=== PATIENT | female | born 1995 | race Caucasian/White ===

== ENCOUNTER 2021-07-23 08:45 | Emergency (ER) | payer OTHER ==
--- OUTSIDE RECORDS SUMMARY | 2021-07-23 08:48 | XMS REPORT | Continuity of Care Document ---
:1995 Author Organization [facility] t Address [address] [place] [address] Care Team Providers Name Role Phone Unavailable Unavailable Unavailable Problems This patient has no known problems. Allergies, Adverse Reactions, Alerts This patient has no known allergies or adverse reactions. Medications This patient has no known medications. Procedures This patient has no known procedures. Results This patient has no known results.
[2021-07-23 09:11] LABS: Urine Blood Trace-lysed (Negative); Urine Glucose Negative (Negative); Urine Protein Negative (Negative)
[2021-07-23] MEDS ORDERED: ACETAMINOPHEN 500 MG TAB ONE (09:23)
[2021-07-23 09:28] LABS: Absolute Lymphocytes (CBC) 1.3 K/uL (0.7-4.9); Basophils % 0.8 % (0-1.3); Hematocrit 39.9 % (36.0-45.0); Lymphocytes % 14.2 % (15.3-44.8); MPV 9.4 fL (7.6-11.3); RBC Red Blood Cell Count 4.61 M/uL (3.86-4.86)
[2021-07-23] MEDS ORDERED: NA CHLORIDE 0.9% 1,000 ML ONE (09:31)
[2021-07-23 10:01] LABS: BUN Blood Urea Nitrogen 7 mg/dL (7-18); Bicarbonate 23 mmol/L (21-32); Glucose Level 87 mg/dL (74-106); HCG, Quantitative 48900 mIU/mL (1-3); Potassium 3.7 mmol/L (3.5-5.1); Sodium Level 138 mmol/L (136-145)
--- NOTE | 2021-07-23 11:14 | RAD REPORT ---
EXAM DESCRIPTION: US - Transvaginal OB - 07/23/2021 10:59 am CLINICAL HISTORY: Abd pain;Vaginal bleeding COMPARISON: No comparisons FINDINGS: Single IUP with positive heart tones. The crown-rump length measures 1.1 cm which is consistent with 7 weeks 1 day. The heart rate is measured at 165 beats . minute. The right ovary measures 2.1 x 1.6 x 1.9 cm with volume of 3.4 cc. The left ovary measures 4.1 x 3.5 x 3.6 cm with volume of 26.9 cc. A simple appearing left ovarian cyst is noted. IMPRESSION: Single viable IUP with positive heart tones measuring 7 week 1 day with estimated delivery of 03/10/2022.
--- NOTE | 2021-07-23 12:31 | ER ---
Nurse's Notes [facility] Name: Celia Thakkar Age: 25 yrs Sex: Female : 1995 Arrival Date: 07/23/2021 Time: 08:50 Bed 7 Private MD: Diagnosis: Threatened Presentation: 07/23 08:56 Chief complaint: Patient states: Sharp, suprapubic discomfort, dark brown vaginal ss spotting and pain to back of head that began at 0300 this am. Pt reports that she is 8 weeks . Coronavirus screen: Client denies travel out of the [place] in the last 14 days. Ebola Screen: Patient denies exposure to infectious person. Patient denies travel to an Ebola-affected area in the 21 days before illness onset. Initial Sepsis Screen: Does the patient meet any 2 criteria? No. Patient's initial sepsis screen is negative. Does the patient have a suspected source of infection? No. Patient's initial sepsis screen is negative. Risk Assessment: Do you want to hurt yourself or someone else? Patient reports no desire to harm self or others. Onset of symptoms was July 23, 2021. 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 - Social history:: Smoking status: Patient denies any tobacco usage or history of. Screenin:20 Abuse screen: Denies threats or abuse. Nutritional screening: No deficits noted. ll1 Tuberculosis screening: No symptoms or risk factors identified. Fall Risk IV access (20 points). Total Farias Fall Scale indicates No Risk (0-24 pts). Assessment: 09:20 General: Appears in no apparent distress. Behavior is calm, cooperative, appropriate ll1 for age. Pain: Denies pain. GI: Bowel sounds present X 4 quads. Abd is soft and non tender X 4 quads. : Reports cramping, vaginal bleeding that is brown, light flow, spotty. Vital Signs: 08:56 BP 120 / 82; Pulse 95; Resp 14; Pulse Ox 100% on R/A; Weight 88.45 kg; Height 5 ft. 5 ss in. (165.10 cm); Pain 7/10; 09:00 Temp 98.2(TE); ss 09:30 BP 112 / 67 Supine; Pulse 86; ll1 09:32 BP 115 / 65; Pulse 89; ll1 09:34 ll1 12:45 BP 119 / 70; Pulse 82; Resp 15; Pulse Ox 100% ; ll1 08:56 Body Mass Index 32.45 (88.45 kg, 165.10 cm) ss 09:34 got too dizzy to complete standing ortho. Danika Osuna NP informed. ll1 ED Course: 08:50 Patient arrived in ED. mr 08:57 Triage completed. ss 08:57 [facility] kb 08:57 Onur Saucedo MD is Attending Physician. kb 08:57 Arm band placed on left wrist. ss 09:03 Shila Joshi, RADHA is Primary Nurse. ll1 09:12 Patient has correct armband on for positive identification. Placed in gown. Bed in low mh5 position. Call light in reach. Warm blanket given. Pulse ox on. NIBP on. 09:12 Urine collected: clean catch specimen, clear. mh5 09:20 Inserted saline lock: 20 gauge in right antecubital area, using aseptic technique. ll1 Blood collected. 10:59 US Transvaginal Ob In Process Unspecified. EDMS 12:45 IV discontinued, intact, bleeding controlled, No redness/swelling at site. Pressure ll1 dressing applied. 12:45 No provider procedures requiring assistance completed. ll1 Administered Medications: 09:27 Drug: Tylenol 1000 mg Route: PO; ll1 13:07 Follow up: Response: No adverse reaction ll1 09:35 Drug: NS 0.9% 1000 ml Route: IV; Rate: 1000 ml; Site: right antecubital; ll1 12:45 Follow up: Response: No adverse reaction; IV Status: Completed infusion; IV Intake: ll1 1000ml Intake: 12:45 IV: 1000ml; Total: 1000ml. ll1 Outcome: 12:31 Discharge ordered by . kb 12:45 Discharged to home ambulatory. ll1 12:45 Condition: stable 12:45 Discharge instructions given to patient, Instructed on discharge instructions, follow up and referral plans. Demonstrated understanding of instructions, follow-up care. 12:46 Patient left the ED. 5 Signatures: Dispatcher [employer] EDMS Isabel Osuna, MARISSA MTZP-Frieda [place], Chela Borjas RN [facility] Shila Joshi RN RN 1
--- NOTE | 2021-07-23 12:31 | EDPHYS ---
Physician Documentation [facility] Name: Celia Thakkar Age: 25 yrs Sex: Female : 1995 Arrival Date: 07/23/2021 Time: 08:50 Bed 7 Private MD: ED Physician Onur Saucedo HPI: 07/23 12:47 This 25 yrs old Female presents to ER via Ambulatory with complaints of Headache, 8wks kb , Abdominal Pain. 12:47 The patient presents to the emergency department with abdominal pain, vaginal bleeding, kb described as spotting. The estimated gestational age is 8 weeks. course: care: private OB physician, [facility], Leakage of Fluid: none appreciated, Ultrasound: the patient has not had an ultrasound, Risk/complications: no obvious risks or complications are appreciated. Previous pregnancies: the patient has never been . Associated signs and symptoms: Pertinent positives: abdominal pain, vaginal bleeding. The patient has not experienced similar symptoms in the past. The patient has not recently seen a physician. Pt reports she noticed brown blood on tissue when she wiped about 4 times, has had lower abd pain, headache and dizziness that started at 0300 this morning. . 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 - Social history:: Smoking status: Patient denies any tobacco usage or history of. ROS: 12:46 Constitutional: Negative for fever, chills, and weight loss. kb 12:46 Abdomen/GI: Positive for abdominal pain, Negative for nausea, vomiting, and diarrhea. 12:46 : Positive for vaginal bleeding. 12:46 Neuro: Positive for dizziness, headache. 12:46 All other systems are negative. Exam: 12:47 Constitutional: This is a well developed, well nourished patient who is awake, alert, kb and in no acute distress. Head/Face: Normocephalic, atraumatic. ENT: Moist Mucous membranes Cardiovascular: Regular rate and rhythm with a normal S1 and S2. No gallops, murmurs, or rubs. No pulse deficits. Respiratory: Respirations even and unlabored. No increased work of breathing, no retractions or nasal flaring. Abdomen/GI: Soft, non-tender. No distention Skin: Warm, dry with normal turgor. Normal color. MS/ Extremity: Pulses equal, no cyanosis. Neurovascular intact. Full, normal range of motion. Neuro: Awake and alert, GCS 15, oriented to person, place, time, and situation. Moves all extremities. Normal gait. Psych: Awake, alert, with orientation to person, place and time. Behavior, mood, and affect are within normal limits. Vital Signs: 08:56 BP 120 / 82; Pulse 95; Resp 14; Pulse Ox 100% on R/A; Weight 88.45 kg; Height 5 ft. 5 ss in. (165.10 cm); Pain 7/10; 09:00 Temp 98.2(TE); ss 09:30 BP 112 / 67 Supine; Pulse 86; ll1 09:32 BP 115 / 65; Pulse 89; ll1 09:34 ll1 12:45 BP 119 / 70; Pulse 82; Resp 15; Pulse Ox 100% ; ll1 08:56 Body Mass Index 32.45 (88.45 kg, 165.10 cm) ss 09:34 got too dizzy to complete standing ortho. Danika Osuna, CURB MACHINE OPERATOR informed. ll1 MDM: 08:57 Patient medically screened. kb 10:37 Data reviewed: vital signs, nurses notes. Data interpreted: Pulse oximetry: on room air kb is 100 %. Interpretation: normal. 12:46 Counseling: I had a detailed discussion with the patient and/or guardian regarding: the kb historical points, exam findings, and any diagnostic results supporting the discharge/admit diagnosis, lab results, radiology results, the need for outpatient follow up, an OB/Gyne specialist, to return to the emergency department if symptoms worsen or persist or if there are any questions or concerns that arise at home. 07/23 09:00 Order name: Abo/rh Typing; Complete Time: 10:26 kb 07/23 09:00 Order name: Basic Metabolic Panel; Complete Time: 10:06 kb 07/23 09:00 Order name: CBC with Diff; Complete Time: 09:39 kb 07/23 09:00 Order name: Quantitative Hcg; Complete Time: 10:06 kb 07/23 09:11 Order name: Urine Dipstick-Ancillary; Complete Time: 09:15 EDMS 07/23 09:20 Order name: Urine --Ancillary (enter results); Complete Time: 10:35 em1 07/23 09:00 Order name: IV Saline Lock; Complete Time: 09:03 kb 07/23 09:00 Order name: Labs collected and sent; Complete Time: 09:03 kb 07/23 09:00 Order name: NPO; Complete Time: 09:03 kb 07/23 09:00 Order name: Urine Dipstick-Ancillary (obtain specimen); Complete Time: 09:11 kb 07/23 10:07 Order name: US Transvaginal Ob; Complete Time: 12:12 kb 07/23 10:30 Order name: ABO/RH no charge; Complete Time: 10:35 EDMS 07/23 09:00 Order name: Urine Test (obtain specimen); Complete Time: 09:11 kb 07/23 09:22 Order name: Orthostatics; Complete Time: 09:27 kb Administered Medications: 09:27 Drug: Tylenol 1000 mg Route: PO; ll1 13:07 Follow up: Response: No adverse reaction ll1 09:35 Drug: NS 0.9% 1000 ml Route: IV; Rate: 1000 ml; Site: right antecubital; ll1 12:45 Follow up: Response: No adverse reaction; IV Status: Completed infusion; IV Intake: ll1 1000ml Disposition: 17:56 Co-signature as Attending Physician, Onur Saucedo MD I agree with the assessment and kdr plan of care. Disposition Summary: 07/23/21 12:31 Discharge Ordered Location: Home kb Condition: Stable kb Diagnosis - Threatened kb Followup: kb - With: Emergency Department - When: As needed - Reason: Worsening of condition Followup: kb - With: Private Physician - When: 2 - 3 days - Reason: Recheck today's complaints, Continuance of care, Re-evaluation by your physician Discharge Instructions: - Discharge Summary Sheet kb - Threatened Miscarriage, [id number] kb - Vaginal Bleeding During , First Trimester, [id number] kb Forms: - Medication Reconciliation Form kb - Thank You Letter kb - Antibiotic Education kb - Prescription Opioid Use kb - Work release form ll1 Signatures: Dispatcher [facility] Isabel Noe, FITTER AND TURNER-C FITTER [employer] TURNER-Onur Alvarez MD MD kdr Smirch, [place], RN RN Shila Joshi RN RN 1
[2021-07-23 13:16] VITALS: TEMP 98.2
[2021-07-23 13:18] VITALS: BP 115/65
== END 2021-07-23 12:46 | disposition home or self-care (01) ==
LOC: ER 08:45
DX: O20.0 Threatened abortion (principal)
CPT/HCPCS: 96361; 85025; 80048; 36415; 86900; 81025; 86901; 84702; 81003; 76817; 96360; 99284; J7030

== ENCOUNTER 2021-09-07 06:14 | Emergency (ER) | payer OTHER ==
--- OUTSIDE RECORDS SUMMARY | 2021-09-07 06:17 | XMS REPORT | Continuity of Care Document ---
:1995 Author Organization [facility] t Address [address] [place] [address] Care Team Providers Name Role Phone Mykel MEYER Primary Care Physician Jennifer GRIFFITH, S Attending Clinician Jose RODRIGUEZ Attending Clinician Unavailable Payers Payer Name Policy Type Policy Number Effective Date Expiration Date S ource Problems Condition Condition Condition Status Onset Resolution Last Treating Co mments Source Name Details Category Date Date Treatment Clinician Date Left Left Disease Active Univers radial radial 4-10 ity of head head 00:00: [place] fracture, fracture, 00 Medi cristina closed, closed, Branch initial initial encounter encounter Allergies, Adverse Reactions, Alerts Allergy Allergy Status Severity Reaction(s) Onset Inactive Treating Comm ents Source Name Type Date Date Clinician NO KNOWN Drug Active Univers ALLERGIE Class ity of S [place] [facility] Social History Social Habit Start Date Stop Date Quantity Comments Source Exposure to Not sure [facility] SARS-CoV-2 (event) Medica l Branch Alcohol intake 2021-07-25 2021-07-25 [facility] 00:00:00 00:00:00 Medical Branch Sex Assigned At [birth year] [facility] 00:00:00 00:00:00 Medical Branch Smoking Status Start Date Stop Date Source Never smoker [facility] [place] [facility] Medications Ordered Filled Start Stop Current Ordering Indication Dosage Frequency Signature Comments Components Source Medication Medication Date Date Medication? Clinician (SIG) Name Name ondansetron 2020-09 No 4mg 4 mg, Univ ers (ZOFRAN-ODT 09-24 Oral, ity of ) 09:45: 08:40 ONCE, 1 [place] disintegrat 00 :00 dose, On Medi cristina ing tablet [place] [facility] 4 mg 07/25/21 at 0345, Routine acetaminoph 2020-09 No 1000mg 1,000 mg, Univers en 09-24 Oral, ity of (TYLENOL) 09:30: 08:39 ONCE, [place] tablet [place] :00 dose, On Medical 1,000 mg [place] [facility] 07/25/21 at 0330, Routine proCHLORper 2020-09 No 10mg Take 10 mg Univers azine 09-24 by mouth ity of (COMPAZINE) 00:46: 00:00 [place] 6 [place] 10 mg 38 :00 (six) Medical tablet hours as Branch needed. ketorolac 2020-09 No 10mg Take 10 mg U papoers (TORADOL) 09-24 by mouth. ity of 10 mg 00:46: 00:00 [place] tablet 32 :00 Medical Branch MEDROXYPROG 2020-09 No by Unive rs ESTERONE 09-24 Intramuscu ity of ACETATE 00:46: 00:00 lar route. [place] as (DEPO-PROVE 29 :00 Medical RA IM) Branch dexamethaso 2020-09 No 4mg Take 4 mg Univers ne 09-24 by mouth ity of (DECADRON) 00:46: 00:00 [place] 12 [place] 4 [place] tablet 26 :00 (twelve) Medi cristina hours. Branch ASPIRIN/KAITLYN 2020-09 No Take by U karen TAMINOPHEN/ 09-24 mouth. ity o f CAFFEINE 00:46: 00:00 [place] (EXCEDRIN 17 :00 Medical MIGRAINE Branch ORAL) naproxen 2016-09 No 500mg Take 1 Unive rs 500 mg 004 07-25 tablet by ity of tablet 00:00: 00:00 mouth 2 [place] 00 :00 (two) Medical times [place] daily with meals. cyclobenzap 2016-09- No 5mg Take 1 Uni vers rine 5 mg 07-25 tablet by ity of tablet 00:00: 00:00 mouth 3 [place] 00 :00 (three) Medical times Branch daily. clindamycin 2020- No [id number] Apply to Univers (CLEOCIN T) 04-22 area(s) ity of 1 % gel 00:00: 00:00 every [place] 00 :00 morning. Medical Branch tretinoin 2020- No [id number] Apply 2 Univers (RETIN-A) 04-22 times ity of 0.025 % 00:00: 00:00 [place] cream 00 :00 x 3-4 Medical weeks, Branch then q other HS x 3-4 weeks, then qHS Immunizations Ordered Immunization Filled Immunization Date Status Commen ts Source Name Name HPV 2011-04-12 Completed University of 00:00:00 [facility] HPV 2010-10-22 Completed University of 00:00:00 [facility] Meningococcal 2010-06-25 Completed University of Vaccine 00:00:00 [facility] TDAP 2010-06-25 Completed University of 00:00:00 [facility] Varicella 2010-06-25 Completed University of (varivax)(chicken 00:00:00 [place] M edical pox) Branch HEPATITIS A 2004-04-08 Completed University of 00:00:00 [facility] DTAP 2001-12-25 Completed University of 00:00:00 [facility] HEPATITIS A 2001-12-25 Completed University of 00:00:00 [facility] MMR 2001-12-25 Completed University of 00:00:00 [facility] Polio (IPV/OPV) 2001-12-25 Completed Universit y of 00:00:00 [facility] HEPATITIS A 2001-02-01 Completed University of 00:00:00 [facility] Hep B, Adol or Pedi 2001-02-01 Completed Unive rsity of Dosage 00:00:00 [facility] Varicella 2001-02-01 Completed University of (varivax)(chicken 00:00:00 [place] M edical pox) Branch Pneumococcal 7 2001-02-01 Completed University of Conjugate, PCV7 00:00:00 [place] Med ical (Prevnar7) Branch MMR 1999-01-12 Completed University of 00:00:00 [facility] Polio (IPV/OPV) 1999-01-12 Completed Universit y of 00:00:00 [facility] DTAP 1999-01-12 Completed University of 00:00:00 [facility] HIB 3 Dose Schedule 1999-01-12 Completed Unive rsity of 00:00:00 [facility] HIB 3 Dose Schedule 1998-01-12 Completed Unive rsity of 00:00:00 [facility] DTAP 1995 Completed University of 00:00:00 [facility] HIB 3 Dose Schedule 1995 Completed Unive rsity of 00:00:00 [facility] Polio (IPV/OPV) 1995 Completed Universit y of 00:00:00 [facility] DTAP 1995 Completed University of 00:00:00 [facility] HIB 3 Dose Schedule 1995 Completed Unive rsity of 00:00:00 [facility] Hep B, Adol or Pedi 1995 Completed Unive rsity of Dosage 00:00:00 [facility] Polio (IPV/OPV) 1995 Completed Universit y of 00:00:00 [facility] Hep B, Adol or Pedi 1995 Completed Unive rsity of Dosage 00:00:00 [facility] Vital Signs Vital Name Observation Time Observation Value Comments Source Systolic blood 2021-07-25 09:00:00 125 mm[Hg] Univer sity of pressure [facility] Diastolic blood 2021-07-25 09:00:00 75 mm[Hg] Unive rsity of pressure [facility] Heart rate 2021-07-25 09:00:00 81 /min [facility] Oxygen saturation in 2021-07-25 09:00:00 100 /min [facility] Arterial blood by [facility] Pulse oximetry Branch Respiratory rate 2021-07-25 08:00:00 16 /min [facility] Body temperature 2021-07-25 06:44:00 37.06 Cassie [facility] Body height 2021-07-25 06:44:00 165.1 cm [facility] Body weight 2021-07-25 06:44:00 88.451 kg [facility] BMI 2021-07-25 06:44:00 32.45 kg/m2 [facility] Procedures Procedure Date / Time Performing Clinician Source Performed ABORH CONFIRMATION (LAB 2021-07-25 07:45:00 Nirav Rodriguez [facility] ONLY) [facility] HB ABO GROUPING 2021-07-25 07:22:00 Nirav Rodriguez [facility] COMP. METABOLIC PANEL 2021-07-25 07:20:00 Nirav Rodriguez [facility] ([id number]) [facility] TOTAL BETA HCG ASSAY 2021-07-25 07:20:00 Nirav Rodriguze [facility] CBC WITH DIFF 2021-07-25 07:20:00 Nirav Rodriguez [facility] URINALYSIS 2021-07-25 07:20:00 Nirav Rodriguez [facility] NOTICE OF PRIVACY 2021-07-25 06:34:06 Doctor Unassigned, No [facility] PRACTICES Name [facility] CONSENT/REFUSAL FOR 2021-07-25 06:33:55 Doctor Unassigned, No [facility] DIAGNOSIS AND TREATMENT Name [facility] Encounters Start End Encounter Admission Attending Care Care Encounter Source Date/Time Date/Time Type Type Clinicians Facility Department ID 2021-07-25 2021-07-25 Emergency Jennifer [facility] [id number] Univers 00:39:00 03:30:00 Nirav Garcia [place] [id number] i [facility] [id number] [facility] [id number] [facility] 084 Branch 2021-07-25 2021-07-25 Emergency X JENNIFER [facility] ERT [id number] Univers 00:39:00 [facility]30[facility] Test Description Test Time Test Comments Results Result Comments Source ABORH Confirmation (Lab Only) 2021-07-25 08:58:17 Test Item Value Reference Range Interpretation Comme nts ABO & RH (test code = 20) B Positive Pe rformed at [facility] Laboratory Services - [facility] Blood [address] [id number] Free: [phone] A No. [id number] [facility] Screen - ONCE [id number] 08:44:15 Test Item Value Reference Range Interpretation Comments ABO & RH (test code B Positive Performe d at [facility] = 20) Laboratory Serv [facility] Blood Bank[address] [place] [address] Free: [phone] A No. [id number] IAT (test code = Negative Performed a t [facility] 1185) Laboratory [facility] Blood [address] [place], [place] [id number] Free: [phone] A No. [id number] [facility] (QUANTITATIVE)2021-07-25 08:38:23 Test Item Value Reference Range Interpretation Comments BETA HCG (test See_Comment [Automated m essage] code = The system [employer] h [id number]) generated this result transmit grecia reference range : Non- fe male and male patien ts: <5 mIU/mL. The reference range was not used to interpret this result as normal/abnormal . DEIDRA (test code Gestational Age ? ? = DEIDRA) ?Range (mIU/mL) 1-10 ?Weeks ?[id number] Weeks ?[id number] Weeks ?1595-71010740-50 Weeks ?8261-279747 Biotin has been reported to cause a negative bias, interpret results relative to patient's use of biotin. [facility]. METABOLIC PANEL ([id number])2021-07-25 07:44:50 Test Item Value Reference Range Interpretation Comments NA (test code = 136 mmol/L 135-145 2640614658) K (test code = 3.9 mmol/L 3.5-5.0 3481713338) CL (test code = 104 mmol/L 98-108 8929965090) CO2 TOTAL (test code = 24 mmol/L 23-31 4600227939) AGAP (test code = 2-16 4659063105) BUN (test code = 7 mg/dL 7-23 7948781618) GLUCOSE (test code = 115 mg/dL 70-110 H 9743466447) CREATININE (test code = 0.58 mg/dL 0.50-1.04 3178960612) TOTAL BILI (test code = 0.3 mg/dL 0.1-1.0 1755054538) CALCIUM (test code = 9.6 mg/dL 8.6-10.6 2627301830) T PROTEIN (test code = 6.9 g/dL 6.3-8.2 5419999259) ALBUMIN (test code = 4.1 g/dL 3.5-5.0 8053899465) ALK PHOS (test code = 75 U/L 34-122 2705767081) ALTv (test code = 13 U/L 5-35 1742-6) AST(SGOT) (test code = 19 U/L 13-40 9419298844) eGFR (test code = mL/min/1.73m2 6357572208) DEIDRA (test code = DEIDRA) Association of Glomerular Filtration Rate (GFR) and Staging of Kidney Disease* + --+ --+ ------+| GFR (mL/min/1.73 m2) ?| With Kidney Damage ?| ?Without Kidney Damage+ --------+ --------+ +| ?>90 ?| ?Stage one ?| ? Normal ?+ ---+ ---+ -------+| ?60-89 ?| ?Stage two ?| ? Decreased GFR ? + --+ --+ ------+| ?30-59 ?| ?Stage three ?| ? Stage three ? + --+ --+ ------+| ?15-29 ?| ?Stage four ? | ? Stage four ?+ ---+ ---+ -------+| ?<15 (or dialysis) ? ?| ?Stage five ? | ? Stage five ?+ ---+ ---+ -------+ *Each stage assumes the associated GFR level has been in effect for at least three months. ?Stages 1 to 5, with or without kidney disease, indicate chronic kidney disease. Notes: Determination of stages one and two (with eGFR >59mL/min/1.73 m2) requires estimation of kidney damage for at least three months as defined by structural or functional abnormalities of the kidney, manifested by either:Pathological abnormalities or Markers of kidney damage (including abnormalities in the composition of the blood or urine or abnormalities in imaging tests). Lab Interpretation Abnormal (test code = 50027-4) [facility] WITH [id number] 07:31:47 Test Item Value Reference Range Interpretation Comments WBC (test code = See_Comment [Automated 5490-2) message] The sy stem which generated this result transmitted reference range : 4.30 - 11.10 10*3/?L. The reference range was not used to interpret this result as normal/abnormal . RBC (test code = See_Comment [Automated 789-8) message] The sy stem which generated this result transmitted reference range : 3.93 - 5.25 10*6/?L. The reference range was not used to interpret this result as normal/abnormal . HGB (test code = 12.6 g/dL 11.6-15.0 718-7) HCT (test code = 37.8 % 35.7-45.2 4544-3) MCV (test code = 88.3 fL 80.6-95.5 787-2) MCH (test code = 29.4 pg 25.9-32.8 785-6) MCHC (test code = 33.3 g/dL 31.6-35.1 786-4) RDW-SD (test code = 41.1 fL 39.0-49.9 56935-6) RDW-CV (test code = 12.8 % 12.0-15.5 788-0) PLT (test code = See_Comment [Automated 777-3) message] The sy stem which generated this result transmitted reference range : 166 - 358 10*3/ ?L. The reference r nurys was not used to interpret this result as normal/abnormal . MPV (test code = 11.2 fL 9.5-12.9 69321-0) NRBC/100 WBC (test See_Comment [Automat ed code = [id number]) message] The system which generated this result transmitted reference range : 0.0 - 10.0 /100 WBCs. The refer ence range was not u sed to interpret th is result as normal/abnormal . NRBC x10^3 (test code <0.01 See_Comment [Auto mated = 5627267116) message] The s ystem which generated this result transmitted reference range : 10*3/?L. The reference range was not used to interpret this result as normal/abnormal . GRAN MAT (NEUT) % 76.4 % (test code = 770-8) IMM GRAN % (test code 0.40 % = 3549927722) LYMPH % (test code = 13.3 % 736-9) MONO % (test code = 7.9 % 5905-5) EOS % (test code = 1.4 % 713-8) BASO % (test code = 0.6 % 706-2) GRAN MAT x10^3(ANC) 7.57 10*3/uL 1.88-7.09 H (test code = 3664252484) IMM GRAN x10^3 (test 0.04 10*3/uL 0.00-0.06 code = 3061414880) LYMPH x10^3 (test code 1.32 10*3/uL 1.32-3.29 = 731-0) MONO x10^3 (test code 0.78 10*3/uL 0.33-0.92 = 742-7) EOS x10^3 (test code = 0.14 10*3/uL 0.03-0.39 711-2) BASO x10^3 (test code 0.06 10*3/uL 0.01-0.07 = 704-7) Lab Interpretation Abnormal (test code = 33653-6) [facility]"
[2021-09-07] MEDS ORDERED: CODEINE 30MG/APAP 300MG TAB ONE (07:45)
--- NOTE | 2021-09-07 08:37 | RAD REPORT ---
EXAM DESCRIPTION: CT - Head Brain Wo Cont - 09/07/2021 8:19 am CLINICAL HISTORY: Headache COMPARISON: None. TECHNIQUE: Computed axial tomography of the head was obtained. IV contrast was not requested. Patien t's abdomen was shielded All CT scans are performed using dose optimization technique as appropriate and may include automated exposure control or mA/KV adjustment according to patient size. FINDINGS: An intracranial bleed is not seen . The ventricles are normal in caliber. No extra-axial fluid collection is noted. Fluid within the sinuses/ mastoids is not seen. IMPRESSION: No acute intracranial abnormality is seen. If patient's symptoms persist MRI of the bra in would be recommended.
--- NOTE | 2021-09-07 08:45 | EDPHYS ---
Physician Documentation [facility] Name: Celia Thakkar Age: 26 yrs Sex: Female : 1995 Arrival Date: 09/07/2021 Time: 06:29 Bed 9 Private MD: ED Physician Chris Haynes HPI: 09/07 07:39 This 26 yrs old Female presents to ER via Ambulatory with complaints of Headache. rn 07:39 The patient complains of pain to the right eye and left eye. The patient describes the rn headache as aching. Onset: The symptoms/episode began/occurred yesterday. Associated signs and symptoms: Pertinent positives: blurred vision, visual field changes, Pertinent negatives: altered mental status, fever, neck stiffness, rash, weakness, vertigo. Severity of symptoms: At its worst the pain was moderate, in the emergency department the pain has improved. Headache History: The patient has had previous headaches and this one is similar to previous episodes. The symptoms are alleviated by nothing. the symptoms are aggravated by lights, noise. The patient has experienced a previous episode. The patient has not recently seen a physician. Patient reports 2 days of headache, began behind the right eye yesterday with visual disturbances, so ribbon in right eye with blurred/decreased vision in that eye yesterday. Has had headache before but this was slightly different. Went home and took Tylenol with improvement of headache as well as visual disturbance. Currently still having headache but visual disturbance has resolved since last night. Denies any focal neurological problem such as weakness or numbness. No speech difficulty. No recent head injury. No neck injury. No other medical problems.. 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 - Social history:: Smoking status: Patient denies any tobacco usage or history of. - Family history:: not pertinent. - Hospitalizations: : No recent hospitalization is reported. ROS: 07:39 Constitutional: Negative for fever, chills, and weight loss, Eyes: Negative for injury, rn redness, and discharge, ENT: Negative for injury, pain, and discharge, Neck: Negative for injury, pain, and swelling, Cardiovascular: Negative for chest pain, palpitations, and edema, Respiratory: Negative for shortness of breath, cough, wheezing, and pleuritic chest pain, Abdomen/GI: Negative for abdominal pain, diarrhea, and constipation, Back: Negative for injury and pain, : Negative for injury, bleeding, discharge, and swelling, MS/Extremity: Negative for injury and deformity, Skin: Negative for injury, rash, and discoloration, Neuro: Negative for weakness, numbness, tingling, and seizure. 07:39 All other systems are negative. rn Exam: 07:39 Constitutional: This is a well developed, well nourished patient who is awake, alert, rn and in no acute distress. Head/Face: Normocephalic, atraumatic. Eyes: Pupils equal round and reactive to light, extra-ocular motions intact. Lids and lashes normal. Conjunctiva and sclera are non-icteric and not injected. Cornea within normal limits. Periorbital areas with no swelling, redness, or edema. Neck: Trachea midline, no masses palpated, and no cervical lymphadenopathy. Supple, full range of motion without nuchal rigidity, or vertebral point tenderness. No Meningismus. Cardiovascular: Regular rate and rhythm. No pulse deficits. Respiratory: No increased work of breathing, no retractions or nasal flaring. Skin: Warm, dry, no rash MS/ Extremity: Pulses equal, no cyanosis. Neurovascular intact. Full, normal range of motion. Equal circumference. Neuro: Awake and alert, GCS 15, oriented to person, place, time, and situation. Cranial nerves II-XII grossly intact. Motor strength 5/5 in all extremities. Sensory grossly intact. Cerebellar exam normal. Vital Signs: 06:43 BP 128 / 75; Pulse 85; Resp 18 S; Temp 98.5(TE); Pulse Ox 100% ; Weight 88.45 kg (R); as6 Height 5 ft. 5 in. (165.10 cm) (R); Pain 7/10; 06:43 Body Mass Index 32.45 (88.45 kg, 165.10 cm) as6 [place] Coma Score: 08:40 Eye Response: spontaneous(4). Verbal Response: oriented(5). Motor Response: obeys rn commands(6). Total: 15. MDM: 07:19 Patient medically screened. rn 08:40 Differential diagnosis: migraine, tension headache, vasomotor headache, ocular rn migraine. Data reviewed: vital signs, nurses notes, radiologic studies, CT scan, and as a result, I will discharge patient. Counseling: I had a detailed discussion with the patient and/or guardian regarding: the historical points, exam findings, and any diagnostic results supporting the discharge/admit diagnosis, radiology results, the need for outpatient follow up, to return to the emergency department if symptoms worsen or persist or if there are any questions or concerns that arise at home. 08:41 Response to treatment: the patient's symptoms have mildly improved after treatment, and rn as a result, I will discharge patient. Special discussion: I discussed with the patient/guardian in detail that at this point there is no indication for admission to the hospital. It is understood, however, that if the symptoms persist or worsen the patient needs to return immediately for re-evaluation. ED course: CT head without acute findings. No focal findings on neurological exam. Stable vital signs. Most likely ocular migraine given vision changes. Vision disturbances have resolved leaving just headache which responded to Tylenol at home and Tylenol with codeine here. Will DC home with return precautions and OB follow-up as needed. Has no related complaints today.. 09/07 07:08 Order name: CT Head Brain wo Cont; Complete Time: 08:40 kb Administered Medications: 07:49 Drug: Tylenol-Codeine #3 (300 mg - 30 mg) 2 tabs Route: PO; ll1 08:58 Follow up: Response: No adverse reaction; RASS: Alert and Calm (0) jd3 Disposition Summary: 09/07/21 08:44 Discharge Ordered Location: Home rn Problem: new rn Symptoms: have improved rn Condition: Stable rn Diagnosis - Headache rn - Ophthalmoplegic migraine, not intractable rn Followup: rn - With: Private Physician - When: As needed - Reason: Recheck today's complaints, Re-evaluation by your physician Discharge Instructions: - Discharge Summary Sheet jd3 Forms: - Medication Reconciliation Form rn - Thank You Letter rn - Antibiotic workers compensation attorney - Prescription Opioid Use rn - Work release form jd3 Signatures: Dispatcher [employer] EDChris Bal MD MD rn Lewis, Lynsay, RN RN francis Lamine Rae, RN RN as6 Susana, Bill RN jd3
--- NOTE | 2021-09-07 08:45 | ER ---
Nurse's Notes [facility] Name: Celia Thakkar Age: 26 yrs Sex: Female : 1995 Arrival Date: 09/07/2021 Time: 06:29 Bed 9 Private MD: Diagnosis: Headache;Ophthalmoplegic migraine, not intractable Presentation: 09/07 06:43 Chief complaint: Patient states: headache that started yesterday, nausea. Coronavirus as6 screen: At this time, the client does not indicate any symptoms associated with coronavirus-19. Ebola Screen: No symptoms or risks identified at this time. Initial Sepsis Screen: Does the patient meet any 2 criteria? No. Patient's initial sepsis screen is negative. Does the patient have a suspected source of infection? No. Patient's initial sepsis screen is negative. Risk Assessment: Do you want to hurt yourself or someone else? Patient reports no desire to harm self or others. Onset of symptoms was September 06, 2021. 06:43 Method Of Arrival: Ambulatory as6 06:43 Acuity: ASCENCION 3 as6 Triage Assessment: 07:20 Headache History:. General: Appears in no apparent distress. Behavior is calm, ll1 cooperative, appropriate for age. Neuro: Reports headache. 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 - Social history:: Smoking status: Patient denies any tobacco usage or history of. - Family history:: not pertinent. - Hospitalizations: : No recent hospitalization is reported. Screenin:20 Abuse screen: Denies threats or abuse. Nutritional screening: No deficits noted. ll1 Tuberculosis screening: No symptoms or risk factors identified. 09:02 Fall Risk None identified. jd3 Assessment: 09:02 General: Appears in no apparent distress. comfortable, Behavior is calm, cooperative, jd3 appropriate for age. Pain: Complains of pain in head Quality of pain is described as pressure. Neuro: Level of Consciousness is awake, alert, obeys commands, Oriented to person, place, time, situation, Speech is normal, Pupils are PERRLA. Cardiovascular: Capillary refill < 3 seconds Patient's skin is warm and dry. Respiratory: Airway is patent Respiratory effort is even, unlabored, Respiratory pattern is regular, symmetrical. GI: No signs and/or symptoms were reported involving the gastrointestinal system. : No signs and/or symptoms were reported regarding the genitourinary system. EENT: No signs and/or symptoms were reported regarding the EENT system. Derm: No signs and/or symptoms reported regarding the dermatologic system. Musculoskeletal: No signs and/or symptoms reported regarding the musculoskeletal system. Vital Signs: 06:43 BP 128 / 75; Pulse 85; Resp 18 S; Temp 98.5(TE); Pulse Ox 100% ; Weight 88.45 kg (R); as6 Height 5 ft. 5 in. (165.10 cm) (R); Pain 7/10; 06:43 Body Mass Index 32.45 (88.45 kg, 165.10 cm) as6 Alina Coma Score: 08:40 Eye Response: spontaneous(4). Verbal Response: oriented(5). Motor Response: obeys rn commands(6). Total: 15. ED Course: 06:29 Patient arrived in ED. ag3 06:45 Triage completed. as6 06:46 Arm band placed on. as6 07:18 Chris Haynes MD is Attending Physician. rn 07:20 Shila Joshi, RADHA is Primary Nurse. ll1 07:20 Arm band placed on Patient placed in an exam room, on a stretcher. ll1 07:20 Patient has correct armband on for positive identification. Bed in low position. Call ll1 light in reach. Side rails up X 1. Cardiac monitoring not applicable on this patient. 08:20 CT Head Brain wo Cont In Process Unspecified. EDMS 09:01 No provider procedures requiring assistance completed. Patient did not have IV access jd3 during this emergency room visit. Administered Medications: 07:49 Drug: Tylenol-Codeine #3 (300 mg - 30 mg) 2 tabs Route: PO; ll1 08:58 Follow up: Response: No adverse reaction; RASS: Alert and Calm (0) jd3 Outcome: 08:44 Discharge ordered by . rn 09:01 Discharged to home ambulatory, with family. jd3 09:01 Condition: stable 09:01 Discharge instructions given to patient, family, Instructed on discharge instructions, follow up and referral plans. Demonstrated understanding of instructions, follow-up care. 09:03 Patient left the ED. jd3 Signatures: Dispatcher [employer] EDMS Chris Haynes MD MD rn Bill Meza RN RN jd3 Ernestina Mendez Lynsay RN RN ll1 Lamine Rae RN RN as6
[2021-09-07 09:17] VITALS: BP 128/75; TEMP 98.5; O2SAT 100
== END 2021-09-07 09:03 | disposition home or self-care (01) ==
LOC: ER 06:14
DX: G43.B0 Ophthalmoplegic migraine, not intractable (principal)
CPT/HCPCS: 70450; 99283

== ENCOUNTER 2021-10-08 18:49 | Inpatient (IN) | payer OTHER ==
--- OUTSIDE RECORDS SUMMARY | 2021-10-08 18:52 | XMS REPORT | Continuity of Care Document ---
:1995 Author Organization [facility] t Address [address] [place] [address] Care Team Providers Name Role Phone Mykel MEYER Primary Care Physician Vivek Attending Clinician Unavailable Jennifer GRIFFITH, S Attending Clinician Jose RODRIGUEZ Attending Clinician Unavailable Physician, Primary or Family Admitting Clinician Unavailabl e Payers Payer Name Policy Type Policy Number Effective Date Expiration Date S ource Problems Condition Condition Condition Status Onset Resolution Last Treating Co mments Source Name Details Category Date Date Treatment Clinician Date Left Left Disease Active Univers radial radial 4-10 ity of head head 00:00: [place] fracture, fracture, 00 Medi cristina closed, closed, Branch initial initial encounter encounter Allergies, Adverse Reactions, Alerts Allergy Allergy Status Severity Reaction(s) Onset Inactive Treating Comm ents Source Name Type Date Date Clinician No Known DA Active U [facility] Allergie 9-30 Clear s 00:00: Sosa 00 [facility] NO KNOWN Drug Active Univers ALLERGIE Class ity of S [facility] Social History Social Habit Start Date Stop Date Quantity Comments Source Exposure to Not sure [facility] SARS-CoV-2 (event) [facility] Alcohol intake 2021-07-25 2021-07-25 [facility] 00:00:00 00:00:00 Medical Branch Sex Assigned At [birth year] [facility] y [facility] 00:00:00 00:00:00 Medical Branch Smoking Status Start Date Stop Date Source Never smoker [facility] Branch Medications Ordered Filled Start Stop Current Ordering Indication Dosage Frequency Signature Comments Components Source Medication Medication Date Date Medication? Clinician (SIG) Name Name ondansetron 2020-09 No 4mg 4 mg, Univ ers (ZOFRAN-ODT 09-24 Oral, ity of ) 09:45: 08:40 ONCE, 1 [place] disintegrat 00 :00 dose, On Medi cristina ing tablet [facility] 4 mg 07/25/21 at 0345, Routine acetaminoph 2020-09 No 1000mg 1,000 mg, Univers en 09-24 Oral, ity of (TYLENOL) 09:30: 08:39 ONCE, 1 [place] tablet [place] :00 dose, On Medical 1,000 mg [place] Branch 07/25/21 at 0330, Routine proCHLORper 2020-09 No 10mg Take 10 mg Univers azine 09-24 by mouth ity of (COMPAZINE) 00:46: 00[place]00 [place] 6 [place] 10 mg 38 :00 (six) Medical tablet hours as Branch needed. ketorolac 2020-09 No 10mg Take 10 mg U nivers (TORADOL) 09-24 by mouth. ity of 10 mg 00:46: 00:00 [place] tablet 32 :00 Medical Branch MEDROXYPROG 2020-09 No by Unive rs ESTERONE 09-24 Intramuscu ity of ACETATE 00:46: 00:00 lar [address] [place] as (DEPO-PROVE 29 :00 Medical RA IM) Branch dexamethaso 2021-1 2021- No 4mg Take 4 mg Univers ne 09-24 by mouth ity of (DECADRON) 00:46: 00:00 [place] 12 [place] 4 [place] tablet 26 :00 (twelve) Medi cristina hours. Branch ASPIRIN/KAITLYN 2020-09- No Take by Zina jones TAMINOPHEN/ 09-24 mouth. ity o f CAFFEINE 00:46: 00:00 [place] (EXCEDRIN 17 :00 Medical MIGRAINE Branch ORAL) naproxen 2016-09- No 500mg Take 1 Unive rs 500 mg 007-25 tablet by ity of tablet 00:00: 00:00 mouth 2 [place] 00 :00 (two) Medical times Branch daily with meals. cyclobenzap 2016-09- No 5mg Take 1 Uni vers rine 5 mg 07-25 tablet by ity of tablet 00:00: 00:00 mouth 3 [place] 00 :00 (three) Medical times Branch daily. clindamycin 2020- No [id number] Apply to Univers (CLEOCIN T) 04-22 area(s) ity of 1 % gel 00:00: 00:00 every [place] 00 :00 morning. Medical Branch tretinoin 2020- No [id number] Apply 2 Univers (RETIN-A) 04-22 times ity of 0.025 % 00:00: 00:00 [place] cream 00 :00 x 3-4 Medical weeks, Branch then q other HS x 3-4 weeks, then qHS Immunizations Ordered Immunization Filled Immunization Date Status Commen ts Source Name Name HPV 2011-04-12 Completed University of 00:00:00 [facility] HPV 2010-10-22 Completed University of 00:00:00 [facility] Varicella 2010-06-25 Completed [facility] (varivax)(chicken 00:00:00 [place] M edical pox) Branch Meningococcal 2010-06-25 Completed University of Vaccine 00:00:00 [facility] TDAP 2010-06-25 Completed University of 00:00:00 [facility] HEPATITIS A 2004-04-08 Completed University of 00:00:00 [facility] DTAP 2001-12-25 Completed University of 00:00:00 [facility] HEPATITIS A 2001-12-25 Completed University of 00:00:00 [facility] MMR 2001-12-25 Completed University of 00:00:00 [facility] Polio (IPV/OPV) 2001-12-25 Completed Universit y of 00:00:00 [facility] HEPATITIS A 2001-02-01 Completed University of 00:00:00 [facility] Hep B, Adol or Pedi 2001-02-01 Completed Unive rsity of Dosage 00:00:00 [facility] Varicella 2001-02-01 Completed University of (varivax)(chicken 00:00:00 [place] M edical pox) Branch Pneumococcal 7 2001-02-01 Completed University of Conjugate, PCV7 00:00:00 [facility] ical (Prevnar7) Branch DTAP 1999-01-12 Completed University of 00:00:00 [facility] HIB 3 Dose Schedule 1999-01-12 Completed Unive rsity of 00:00:00 [facility] MMR 1999-01-12 Completed University of 00:00:00 [facility] Polio (IPV/OPV) 1999-01-12 Completed Universit y of 00:00:00 [facility] HIB 3 Dose Schedule 1998-01-12 Completed Unive rsity of 00:00:00 [facility] DTAP 1995 Completed University of 00:00:00 [facility] HIB 3 Dose Schedule 1997 Completed Unive rsity of 00:00:00 [facility] Polio (IPV/OPV) 1997 Completed Universit y of 00:00:00 [facility] DTAP 1997 Completed University of 00:00:00 [facility] HIB 3 Dose Schedule 1997 Completed Unive rsity of 00:00:00 [facility] Hep B, Adol or Pedi 1995 Completed Unive rsity of Dosage 00:00:00 [facility] Polio (IPV/OPV) 1995 Completed Universit y of 00:00:00 [facility] Hep B, Adol or Pedi 1995 Completed Unive rsity of Dosage 00:00:00 [facility] Vital Signs Vital Name Observation Time Observation Value Comments Source Systolic blood 2021-07-25 09:00:00 125 mm[Hg] Univer sity of pressure [facility] Diastolic blood 2021-07-25 09:00:00 75 mm[Hg] Unive rsity of pressure [facility] Heart rate 2021-07-25 09:00:00 81 /min [facility] Oxygen saturation in 2021-07-25 09:00:00 100 /min [facility] Arterial blood by [facility] Pulse oximetry [facility] Respiratory rate 2021-07-25 08:00:00 16 /min [facility] Body temperature 2021-07-25 06:44:00 37.06 Cassie [facility] Body height 2021-07-25 06:44:00 165.1 cm [facility] Body weight 2021-07-25 06:44:00 88.451 kg [facility] BMI 2021-07-25 06:44:00 32.45 kg/m2 [facility] Procedures Procedure Date / Time Performing Clinician Source Performed ABORH CONFIRMATION (LAB 2021-07-25 07:45:00 Nirav Rodriguez [facility] ONLY) [facility] HB ABO GROUPING 2021-07-25 07:22:00 Nirav Rodriguez [facility] COMP. METABOLIC PANEL 2021-07-25 07:20:00 Nirav Rodriguez [facility] ([id number]) [facility] TOTAL BETA HCG ASSAY 2021-07-25 07:20:00 Nirav Rodriguez [facility] CBC WITH DIFF 2021-07-25 07:20:00 Nirav Rodriguez [facility] URINALYSIS 2021-07-25 07:20:00 Nirav Rodriguez [facility] NOTICE OF PRIVACY 2021-07-25 06:34:06 Doctor Unassigned, No [facility] PRACTICES Name [facility] Branch CONSENT/REFUSAL FOR 2021-07-25 06:33:55 Doctor Unassigned, No [facility] DIAGNOSIS AND TREATMENT Name Medical [facility] Encounters Start End Encounter Admission Attending Care Care Encounter Source Date/Time Date/Time Type Type Clinicians Facility Department ID 2021-09-08 2021-09-08 Emergency NARCISA Dong [id number] [facility] 08:49:00 11:03:00 [facility] [id number] [facility] 2021-09-08 2021-09-08 Emergency MARIANA DongCL [facility] [id number] [facility] 08:49:00 11:03:00 [facility] 2021-07-25 2021-07-25 Emergency [facility] [id number] Univers 00:39:00 03:30:00 Nirav Garcia [place] [id number] i ty of [place] [id number] [facility] [id number] [place] [id number] Branch 2021-07-25 2021-07-25 Emergency [facility] [id number] Univers 00:39:00 03:30:00 NIRAV berg [facility] Results Test Description Test Time Test Comments Results Result Comments Source BASIC METABOLIC PANEL 2021-09-08 10:10:00 Test Item Value Reference Range Interpretation Comme nts SODIUM (test code = NA) 137 mEq/L 134-147 N POTASSIUM (test code = K) 3.9 mEq/L 3.4-5.0 N CHLORIDE (test code = CL) 107 mEq/L 100-108 N CARBON DIOXIDE (test code = CO2) 21 mEq/l 21-33 N ANION GAP (test code = GAP) 13 0-20 N GLUCOSE (test code = GLU) 82 mg/dL 70-110 N BLOOD UREA NITROGEN (test code = < 5 mg/dL 7-18 L BUN) GLOMERULAR FILTRATION RATE (test 122.8 110-120 H Units of measure = ml/min/1.73 code = GFR) m2 CREATININE (test code = CREAT) 0.6 mg/dL 0.6-1.3 N CALCIUM (test code = CA) 8.9 mg/dL 8.0-10.5 N HCG [id number] 10:10:00 Test Item Value Reference Range Interpretation Comments HCG SERUM (test 99239.5 0 - 6 code = HCG) NOT > 6 S UGGESTIVE OF EARLY RISES TWO FOLD EVERY 2 DA YS; SUGGEST RECONFIRMING AF TER 2 DAYS. 150,000- 200,[address] TRIMESTER 10,000 - 50,000 2N D & 3RD TRIMESTERResult s in frank-Internati onal Units/mL UA RFLX MICR CULT IF [id number] 10:05:00 Test Item Value Reference Range Interpretation Comments UA COLOR (test code = COLU) YELLOW YEL/STRAW UA APPEARANCE (test code = CLEAR CLEAR APPU) UA GLUCOSE DIPSTICK (test code NEGATIVE NEGATIVE = DGLUU) UA BILIRUBIN DIPSTICK (test NEGATIVE NEGATIVE code = BILU) UA KETONE DIPSTICK (test code NEGATIVE NEGATIVE = KETU) UA SPECIFIC GRAVITY (test code 1.015 1.005-1.030 N = SGU) UA BLOOD DIPSTICK (test code = NEGATIVE NEGATIVE MARCELLO) UA PH DIPSTICK (test code = 7.0 5.0-7.0 N BRETT) UA PROTEIN DIPSTICK (test code NEGATIVE NEGATIVE = PROU) UA UROBILINIOGEN DIPSTICK 0.2 mg/dL 0.2-1.0 (test code = URO) UA NITRITE DIPSTICK (test code NEGATIVE NEGATIVE = SARAH) UA LEUKOCYTE ESTERASE DIPSTICK NEGATIVE NEGATIVE (test code = LEUU) UA WBC (test code = WBCU) 0-3 WBC/HPF 0-3 UA RBC (test code = RBCU) 0-3 RBC/HPF 0-3 UA WBC NO REFLEX (test code = 0-3 WBC/HPF 0-3 WBCUCL) UA BACTERIA (test code = BACU) NONE SEEN /HPF NONE SEEN UA SQUAMOUS CELLS (test code = 0-5 /HPF NONE SEEN SQU) UA MUCUS (test code = MUCU) TRACE /LPF NONE SEEN Indication for culture: Suprapubic PainSpecimen Description: CLEAN CATCH DRUGS OF ABUSE SCREEN [id number] 09:52:00 Test Item Value Reference Range Interpretation Comments URN COCAINE (test code NEGATIVE NEGATIVE = COCAURN) URN CANNABINOIDS (test NEGATIVE NEGATIVE code = CANNABURN) URN AMPHETAMINE (test NEGATIVE NEGATIVE code = AMPHETURN) URN BARBITURATE (test NEGATIVE NEGATIVE code = BARBITURN) URN BENZODIAZEPINE NEGATIVE NEGATIVE Cut-off v alue:200 (test code = BENZOURN) ng/mL URN OPIATES (test code NEGATIVE NEGATIVE Cut-o ff value:2000 = OPIATURN) ng/mL URN PHENCYCLIDINE (PCP) NEGATIVE NEGATIVE Cuto ffs:Barbiturates (test code = PHENCURN) 200 ng/mLBenzodiaze pines 200 ng/ mLTHC Cannabinoids 50 ng/mLOpiates(Mo rphine) 2000 ng/mLAmphetamin e 1000 ng/mLCocaine 300 ng/ mLPCP phencyclidine 25 ng/mL Unconf irmed screening resul ts shouldnot be us ed for non-medical pur poses. CBC W/AUTO [id number] 09:43:00 Test Item Value Reference Range Interpretation Comments WHITE BLOOD CELL (test code = 9.3 x10 3/uL 4.5-11.0 N WBC) RED BLOOD CELL (test code = 4.74 x10 6/uL 3.54-5.02 N RBC) HEMOGLOBIN (test code = HGB) 14.0 g/dL 11.0-15.0 N HEMATOCRIT (test code = HCT) 41.3 % 33.0-45.0 N MEAN CELL VOLUME (test code = 87.1 fL 81.0-99.0 N MCV) MEAN CELL HGB (test code = MCH) 29.5 pg 27.0-33.0 N MEAN CELL HGB CONCETRATION 33.9 g/dL 33.0-37.0 N (test code = MCHC) RED CELL DISTRIBUTION WIDTH CV 13.2 % 11.5-14.5 N (test code = RDW) RED CELL DISTRIBUTION WIDTH SD 42.1 fL 37.0-54.0 N (test code = RDW-SD) PLATELET COUNT (test code = 256 x10 3/uL 150-400 N PLT) MEAN PLATELET VOLUME (test code 11.3 fL 7.0-9.0 H = MPV) NEUTROPHIL % (test code = NT%) 79.4 % 56.0-77.0 H IMMATURE GRANULOCYTE % (test 0.3 % 0.0-2.0 N code = IG%) LYMPHOCYTE % (test code = LY%) 13.5 % 14.0-32.0 L MONOCYTE % (test code = MO%) 4.8 % 4.8-9.0 N EOSINOPHIL % (test code = EO%) 1.7 % 0.3-3.7 N BASOPHIL % (test code = BA%) 0.3 % 0.0-2.0 N NUCLEATED RBC % (test code = 0.0 % 0-0 N NRBC%) NEUTROPHIL # (test code = NT#) 7.40 x10 3/uL 2.0-7.6 N IMMATURE GRANULOCYTE # (test 0.03 x10 3/uL 0.00-0.03 N code = IG#) LYMPHOCYTE # (test code = LY#) 1.26 x10 3/uL 1.0-3.8 N MONOCYTE # (test code = MO#) 0.45 x10 3/uL 0.1-0.8 N EOSINOPHIL # (test code = EO#) 0.16 x10 3/uL 0.0-0.2 N BASOPHIL # (test code = BA#) 0.03 x10 3/uL 0.0-0.2 N NUCLEATED RBC # (test code = 0.00 x10 3/uL 0.0-0.1 N NRBC#) MANUAL DIFF REQUIRED (test code NO = MDIFF) - US PREG 1ST [id number] 00:00:00 [facility] 1995 Sex: F Name: MAIA MEJIA [facility] : 1995 Age/S: 26 / F [address] [place] [address] Unit #: [id number] Loc: [place] [address] Phys: Darby Tapia [facility] Acct: [id number] Dis Date: Status: REG ER PHONE #: [phone] Exam Date: 09/08/2021 0957 FAX #: [phone] Reason: Pelvic Pain EXAMS: CPT CODE: [id number] US PREG 1ST TRIMTR 96453 DC OCEDURE INFORMATION: Exam: US First Trimester, Transabdominal and US Duplex Artery or Vein, Ovaries, Limited Exam date and time: 09/08/2021 9:54 AM Age: 26 years old Clinical indication: Pelvic pain; Gestational age or lmp: 14w; TECHNIQUE: Imaging protocol: Real-time transabdominal obstetrical ultrasound of the maternal pelvis and a first trimester , less than 14 weeks 0 days, with image documentation. Real-time duplex ultrasound scan of the arterial or venous flow of the ovaries with B-mode, color Doppler flow and spectral waveform analysis, limited Duplex. Other technique: T ransvaginal exam was performed for further assessment of the endometrium and adnexal regions. COMPARISON: No relevant prior studies available. FINDINGS: Gestation: Amniotic fluid/chorionic fluid is normal for gestational age. Single live intrauterine pregnancyis seen with crown-rump length measuring 8.6 cm. heart rate measures 167 bpm. Placenta is posterior and grade 1. No subchorionic hemorrhage is seen. Normal gestational sac isseen measuring 8.8 x 7.3 cm. Sonographic gestational age is 14 weeks and 3 days. Gestational age by LMP is 14 weeks and 5 days. MATERNAL: Uterus: Gravid uterus measures 11.7 x 10.1 x 11.2 cm. Cervix: Limited evaluation due to shadowing artifacts. Right ovary/adnexa: Normal right ovary measures 3.4 x 2.7 x 1.4 cm. Normal ovarian Doppler flow. Left ovary/adnexa: Left ovary measures 3.4 x 2.6 x 2.2 cm with small corpus luteum cyst. Normal ovarian Doppler flow. Intraperitoneal space: No intraperitoneal free fluid. IMPRESSION: Single live intrauterine as above. at 1013 Reported and signed by: Racquel High D.O. PAGE 1 Signed Report (CONTINUED) Name: MAIA MEJIA [facility] : 1995 Age/S: 26 / F [address] [place] [address] Blvd Unit #: [id number] Loc: [place] [address] Phys: Darby Tapia Acct: [id number] Dis Date: Status: REG ER PHONE #: [phone] Exam Date: 09/08/2021 0957 FAX #: [phone] Reason: Pelvic Pain EXAMS: CPT CODE: [id number] PREG 1ST TRIMTR 97926 <Continued> CC: Cisco Doyle MD; Darby Tapia Technologist: Andra Astorga Trnscb Date/Time:09/08/2021 (1012) [email or web address] Orig Print D/T: S: 09/08/2021 (101) Probe: PAGE 2 Signed Report- DUP AB/PEL/SC/[id number] 00:00:00 [facility] LISA ATMOREName: MAIA MEJIA [place] : 1995 Sex: F Name: JACKIEWENNICOLE De La Vega [facility] : 1995 Age/S: 26 / F [address] [place] [address] Blvd Unit #: [id number] Loc: [place] [address] Phys: Daryb Tapia Acct: [id number] Dis Date: Status: REG ER PHONE #: [phone] Exam Date: 09/08/2021 0957 FAX #: [phone] Reason: see US PREG 1st TRIMTR EXAMS: CPT CODE: [id number] DUP AB/PEL/SC/LTD 41204 DC OCEDURE INFORMATION: Exam: US First Trimester, Transabdominal and US Duplex Artery or Vein, Ovaries, Limited Exam date and time: 09/08/2021 9:54 AM Age: 26 years old Clinical indication: Pelvic pain; Gestational age or lmp: 14w; TECHNIQUE: Imaging protocol: Real-time transabdominal obstetrical ultrasound of the maternal pelvis and a first trimester , less than 14 weeks 0 days, with image documentation. Real-time duplex ultrasound scan of the arterial or venous flow of the ovaries with B-mode, color Doppler flow and spectral waveform analysis, limited Duplex. Other technique: T ransvaginal exam was performed for further assessment of the endometrium and adnexal regions. COMPARISON: No relevant prior studies available. FINDINGS: Gestation: Amniotic fluid/chorionic fluid is normal for gestational age. Single live intrauterine pregnancyis seen with crown-rump length measuring 8.6 cm. heart rate measures 167 bpm. Placenta is posterior and grade 1. No subchorionic hemorrhage is seen. Normal gestational sac isseen measuring 8.8 x 7.3 cm. Sonographic gestational age is 14 weeks and 3 days. Gestational age by LMP is 14 weeks and 5 days. MATERNAL: Uterus: Gravid uterus measures 11.7 x 10.1 x 11.2 cm. Cervix: Limited evaluation due to shadowing artifacts. Right ovary/adnexa: Normal right ovary measures 3.4 x 2.7 x 1.4 cm. Normal ovarian Doppler flow. Left ovary/adnexa: Left ovary measures 3.4 x 2.6 x 2.2 cm with small corpus luteum cyst. Normal ovarian Doppler flow. Intraperitoneal space: No intraperitoneal free fluid. IMPRESSION: Single live intrauterine as above. at 1013 Reported and signed by: Racquel High D.O. PAGE 1 Signed Report (CONTINUED) Name: JACKIEANASTACIADONOVAN De La Vega [facility] : 1995 Age/S: 26 / F [address] [place] [address] Unit #: [id number] Loc: [place] [address] Phys: Darby Tapai Acct: [id number] Dis Date: Status: REG ER PHONE #: [phone] Exam Date: 09/08/2021 0957 FAX #: [phone] Reason: see US PREG 1st TRIMTR EXAMS: CPT CODE: [id number] DUP AB/PEL/SC/LTD 17344 <Continued> CC: Cisco Doyle MD; Darby Tapia Technologist: Andra Astorga Trnscb Date/Time:09/08/2021 (1013) [email or web address] Orig Print D/T: S: 09/08/2021 (1014) Probe: PAGE 2 Signed ReportABORH Confirmation (Lab Only)2021-07-25 08:58:17 Test Item Value Reference Range Interpretation Comments ABO & RH (test code B Positive Performe d at [facility] = 20) Laboratory [facility] [address] [place] [address] Free: [phone] A No. [id number] [facility] and Screen - ONCE [id number] 08:44:15 Test Item Value Reference Range Interpretation Comments ABO & RH (test code B Positive Performe d at [facility] = 20) Laboratory [facility] [place], [place] [address]Toll Free: [phone] A No. [id number] IAT (test code = Negative Performed a t [facility] 1185) Laboratory [facility] [place] [address] Free: [phone] A No. [id number] [facility]2021-07-25 08:38:23 Test Item Value Reference Range Interpretation Comments BETA HCG (test See_Comment [Automated m essage] code = The system VidSys [id number]) generated this result transmit grecia reference range : Non- fe male and male patien ts: <5 mIU/mL. The reference range was not used to interpret this result as normal/abnormal . DEIDRA (test code Gestational Age ? ? = DEIDRA) ?Range (mIU/mL) 1-10 ?Weeks ?[id number] Weeks ?[id number] Weeks ?[id number] Weeks ?9422-934318 Biotin has been reported to cause a negative bias, interpret results relative to patient's use of biotin. [facility]. METABOLIC PANEL (36884)2021-07-25 07:44:50 Test Item Value Reference Range Interpretation Comments NA (test code = 136 mmol/L 135-145 8627281040) K (test code = 3.9 mmol/L 3.5-5.0 5538809255) CL (test code = 104 mmol/L 98-108 3887232310) CO2 TOTAL (test code = 24 mmol/L 23-31 6053021707) AGAP (test code = 2-16 9325240899) BUN (test code = 7 mg/dL 7-23 6666579742) GLUCOSE (test code = 115 mg/dL 70-110 H 5726272014) CREATININE (test code = 0.58 mg/dL 0.50-1.04 7539747263) TOTAL BILI (test code = 0.3 mg/dL 0.1-1.4 0732909108) CALCIUM (test code = 9.6 mg/dL 8.6-10.6 3502745292) T PROTEIN (test code = 6.9 g/dL 6.3-8.2 2696863566) ALBUMIN (test code = 4.1 g/dL 3.5-5.0 5792275755) ALK PHOS (test code = 75 U/L 34-122 6213980237) ALTv (test code = 13 U/L 5-35 2-6) AST(SGOT) (test code = 19 U/L 13-40 4714161958) eGFR (test code = mL/min/1.73m2 9243131499) DEIDRA (test code = DEIDRA) Association of [...] tests). Lab Interpretation Abnormal (test code = 39736-9) [facility] WITH [id number] 07:31:47 Test Item Value Reference Range Interpretation Comments WBC (test code = See_Comment [Automated 6690-2) message] The sy stem which generated this [...] RDW-SD (test code = 41.1 fL 39.0-49.9 78422-2) RDW-CV (test code = 12.8 % 12.0-15.5 788-0) PLT (test code = See_Comment [Automated 777-3) message] The sy stem which generated this result transmitted reference range : 166 - 358 10*3/ ?L. The reference r nurys was not used to interpret this result as normal/abnormal . MPV (test code = 11.2 fL 9.5-12.9 25202-6) NRBC/100 WBC (test See_Comment [Automat ed code = 7962871706) message] The system which generated this result transmitted reference range : 0.0 - 10.0 /100 WBCs. The refer ence range was not u sed to interpret th is result as normal/abnormal . NRBC x10^3 (test code <0.01 See_Comment [Auto mated = 0769713303) message] The s ystem which generated this result transmitted reference range : 10*3/?L. The reference range was not used to interpret this result as normal/abnormal . GRAN MAT (NEUT) % 76.4 % (test code = 770-8) IMM GRAN % (test code 0.40 % = 6554856105) LYMPH % (test code = 13.3 % 736-9) MONO % (test code = 7.9 % 5905-5) EOS % (test code = 1.4 % 713-8) BASO % (test code = 0.6 % 706-2) GRAN MAT x10^3(ANC) 7.57 10*3/uL 1.88-7.09 H (test code = 5053549250) IMM GRAN x10^3 (test 0.04 10*3/uL 0.00-0.06 code = 2695622352) LYMPH x10^3 (test code 1.32 10*3/uL 1.32-3.29 = 731-0) MONO x10^3 (test code 0.78 10*3/uL 0.33-0.92 = 742-7) EOS x10^3 (test code = 0.14 10*3/uL 0.03-0.39 711-2) BASO x10^3 (test code 0.06 10*3/uL 0.01-0.07 = 704-7) Lab Interpretation Abnormal (test code = 11328-4) [facility]
[2021-10-08] MEDS ORDERED: ONDANSETRON 4 MG/2 ML VIAL ONE (21:50)
[2021-10-08] MEDS ORDERED: FAMOTIDINE 20 MG/2 ML VIAL IV ONE (21:50)
[2021-10-08] MEDS ORDERED: NA CHLORIDE 0.9% 1,000 ML ONE (21:50)
[2021-10-08 22:16] LABS: Absolute Lymphocytes (CBC) 1.5 K/uL (0.7-4.9); Lymphocytes % 13.3 % (15.3-44.8); MPV 9.3 fL (7.6-11.3); RBC Red Blood Cell Count 4.18 M/uL (3.86-4.86)
[2021-10-08] MEDS ORDERED: MORPHINE 4 MG/ML SYR ONE (22:39)
[2021-10-08 22:41] LABS: ALT/SGPT 28 U/L (12-78); AST/SGOT 14 U/L (15-37); Albumin 2.8 g/dL (3.4-5.0); Alkaline Phosphatase 82 U/L (45-117); BUN Blood Urea Nitrogen 5 mg/dL (7-18); Bicarbonate 21 mmol/L (21-32); Bilirubin Direct < 0.1 mg/dL (0-0.2); Bilirubin Total 0.2 mg/dL (0.2-1.0); Glucose Level 98 mg/dL (74-106); Lipase 91 U/L (73-393); Potassium 3.7 mmol/L (3.5-5.1); Protein, Total 7.3 g/dL (6.4-8.2); Sodium Level 137 mmol/L (136-145)
[2021-10-08] MEDS ORDERED: CEFTRIAXONE 1000 MG/VIAL ONE (23:51)
[2021-10-08] MEDS ORDERED: NA CHLORIDE 0.9% 50 ML ONE (23:51)
--- NOTE | 2021-10-08 23:54 | EDPHYS ---
Physician Documentation [facility] Name: Celia Thakkar Age: 26 yrs Sex: Female : 1995 Arrival Date: 10/08/2021 Time: 18:52 Bed 13 Private MD: ED Physician Toni Mueller HPI: 10/08 21:39 This 26 yrs old Female presents to ER via Ambulatory with complaints of Flank Pain. cp 21:39 The patient complains of pain in the mid back area. The pain radiates to the right cp lateral abdomen. Associated signs and symptoms: Pertinent positives: dysuria, fever, nausea, vomiting, Pertinent negatives: diarrhea, pain radiating to the lower extremities. Severity of pain: in the emergency department the pain is unchanged despite home interventions. 21:40 The patient has been recently seen at the [facility] Emergency cp Department, yesterday, for similar complaints given RX for Macrobid antibiotic. 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 Flu vaccine is not up to date. - Social history:: Smoking status: Patient denies any tobacco usage or history of. ROS: 21:40 Eyes: Negative for injury, pain, redness, and discharge. cp 21:40 Constitutional: Positive for poor PO intake, Negative for fever. 21:40 ENT: Negative for ear pain, sore throat, difficulty swallowing, difficulty handling secretions. 21:40 Cardiovascular: Negative for chest pain, palpitations. 21:40 Respiratory: Negative for cough, shortness of breath, wheezing. 21:40 Abdomen/GI: Positive for abdominal pain, nausea and vomiting, Negative for diarrhea, constipation. 21:40 Back: Positive for flank pain, bilaterally. 21:40 : Positive for urinary symptoms, Negative for vaginal bleeding. 21:40 Neuro: Negative for altered mental status, headache, weakness. 21:40 All other systems are negative. Exam: 21:41 Head/Face: Normocephalic, atraumatic. cp 21:41 Constitutional: The patient appears in no acute distress, alert, awake, non-toxic, well developed, well nourished, uncomfortable. 21:41 Eyes: Periorbital structures: appear normal, Conjunctiva: normal, no exudate, no injection, Sclera: no appreciated abnormality, Lids and lashes: appear normal, bilaterally. 21:41 ENT: External ear(s): are unremarkable, Nose: is normal, Mouth: Lips: moist, Oral mucosa: moist, Posterior pharynx: is normal, airway is patent, no erythema, no exudate. 21:41 Neck: ROM/movement: is normal, is supple, without pain, no range of motions limitations. 21:41 Chest/axilla: Inspection: normal, Palpation: is normal, no crepitus, no tenderness. 21:41 Cardiovascular: Rate: normal, Rhythm: regular, Edema: is not appreciated, JVD: is not appreciated. 21:41 Respiratory: the patient does not display signs of respiratory distress, Respirations: normal, no use of accessory muscles, no retractions, labored breathing, is not present, Breath sounds: are clear throughout, no decreased breath sounds. 21:41 Abdomen/GI: Inspection: gravid appearance, is noted, Bowel sounds: active, all quadrants, Palpation: soft, in all quadrants, moderate abdominal tenderness, in the right lower quadrant and left lower quadrant, rebound tenderness, is not appreciated, involuntary guarding, is not appreciated. 21:41 Back: CVA tenderness, that is moderate, is noted bilaterally. Vital Signs: 19:17 BP 129 / 99; Pulse 87; Resp 16; Temp 98; Pulse Ox 100% ; Weight 90.72 kg; Height 5 ft. vc1 5 in. (165.10 cm); Pain 9/10; 22:46 BP 134 / 93; Pulse 93; Resp 16 S; Temp 97.7(O); Pulse Ox 100% on R/A; bb 10/09 01:41 BP 104 / 68; Pulse 116; Resp 18; Temp 96.8; Pulse Ox 100% on R/A; Pain 0/10; vc1 10/08 19:17 Body Mass Index 33.28 (90.72 kg, 165.10 cm) vc1 MDM: 10/08 21:15 Patient medically screened. cp 22:00 Differential diagnosis: nephrolithiasis, pyelonephritis, sepsis. cp 23:30 Data reviewed: vital signs, nurses notes, lab test result(s), radiologic studies, cp ultrasound. 23:30 Counseling: I had a detailed discussion with the patient and/or guardian regarding: the cp historical points, exam findings, and any diagnostic results supporting the discharge/admit diagnosis, lab results, radiology results. 23:31 Physician consultation: Sherif Wiggins MD was called at 23:31, left message on voicemail. 23:56 Physician consultation: Sherif Wiggins MD was called at 23:50, was contacted at 23:50, regarding admission, women's floor, patient's condition, would like medications started, metronidazole 500 mg q8 hrs. 10/08 21:26 Order name: Basic Metabolic Panel cp 10/08 21:26 Order name: CBC with Diff cp 10/08 21:26 Order name: Hepatic Function; Complete Time: 23:14 cp / 23:14 Interpretation: Normal except: AST 14; ALB 2.8; GLOB 4.5; A/G 0.6. cp 10/08 21:26 Order name: Lipase; Complete Time: 23:14 cp / 21:26 Order name: Urine Microscopic Only cp 10/08 21:26 Order name: Procalcitonin; Complete Time: 23:14 cp 10/08 21:26 Order name: US Rp Exam Complete cp 10/08 21:26 Order name: US OB Limited cp 10/08 21:26 Order name: Lactate; Complete Time: 22:31 cp 10/08 21:26 Order name: Blood Culture Adult (2) cp / 21:27 Order name: Basic Metabolic Panel; Complete Time: 23:14 EDMS / 23:14 Interpretation: Normal except: CL 108; BUN 5. cp / 21:27 Order name: CBC with Automated Diff; Complete Time: 22:31 EDMS 02/04 22:32 Interpretation: Normal except: WBC 11.40; RITU% 78.9; LYM% 13.3; NEUT A 9.0. cp 10/09 00:04 Order name: COVID-19 SARS RT PCR (Document "Date of Onset" if Symptomatic) cp 10/08 21:26 Order name: IV Saline Lock; Complete Time: 21:55 cp 10/08 21:26 Order name: Labs collected and sent; Complete Time: 21:55 cp Administered Medications: 21:54 Drug: Zofran (Ondansetron) 4 mg Route: IVP; Site: right antecubital; ll3 22:56 Follow up: Response: No adverse reaction vc1 21:54 Drug: Pepcid (famotidine) 20 mg Route: IVP; Site: right antecubital; ll3 22:56 Follow up: Response: No adverse reaction vc1 22:45 Drug: NS 0.9% 1000 ml Route: IV; Rate: 1 bolus; Site: right antecubital; bb 23:45 Follow up: IV Status: Completed infusion; IV Intake: 1000ml bb 22:45 Drug: morphine 4 mg {Note: RASS 0.} Route: IVP; Site: right antecubital; bb 10/09 01:54 Follow up: Response: No adverse reaction; RASS: Alert and Calm (0) 10/08 23:51 Drug: Rocephin - (cefTRIAXone) 1 grams Route: IVPB; Infused Over: 30 mins; Site: right vc1 antecubital; 10/09 00:20 Follow up: IV Status: Completed infusion; IV Intake: 50ml bb 00:33 Drug: morphine 4 mg Route: IVP; Site: right antecubital; vc1 01:53 Follow up: Response: No adverse reaction; RASS: Alert and Calm (0) 00:34 Drug: metroNIDAZOLE 500 mg Volume: 100 ml; Route: IVPB; Infused Over: 30 mins; Site: vc1 right antecubital; 01:04 Follow up: IV Status: Completed infusion; IV Intake: 100ml Disposition: 05:01 Co-signature as Attending Physician, Toni Mueller MD. [email or web address] Disposition Summary: 10/08/21 23:53 Hospitalization Ordered Hospitalization Status: Observation cp Provider: Sherif Wiggins cp [facility] cp Condition: Stable cp Problem: an ongoing problem cp Symptoms: have improved cp Bed/Room Type: Standard cp Room Assignment: 272-(10/09/21 01:34) cg Diagnosis - Pyelonephritis acute cp Forms: - Medication Reconciliation Form cp - SBAR form cp Signatures: Dispatcher [employer] EDVivian Dong RN RN bb Jhoan Godinez PA PA cp Garcia, Cindy, RN RN cg Toni Mueller MD MD [email or web address] Warren Gregory RN RN ll3 Farida Craven RN RN vc1 Corrections: (The following items were deleted from the chart) 01:34 02 23:53 cp cg
--- NOTE | 2021-10-08 23:54 | ER ---
Nurse's Notes [facility] Name: Celia Thakkar Age: 26 yrs Sex: Female : 1995 Arrival Date: 10/08/2021 Time: 18:52 Bed 13 Private MD: Diagnosis: Pyelonephritis acute Presentation: 10/08 19:17 Chief complaint: Patient states: I came in yesterday with a kidney infection, I can't vc1 take the pain anymore. He told me if the pain gets any worse to come in. I can't lay down because my back is hurting so much. I have already been on antibiotics since last monday. Coronavirus screen: Vaccine status: Patient reports being unvaccinated. At this time, the client does not indicate any symptoms associated with coronavirus-19. Ebola Screen: No symptoms or risks identified at this time. Initial Sepsis Screen: Does the patient meet any 2 criteria? No. Patient's initial sepsis screen is negative. Does the patient have a suspected source of infection? Yes:. Risk Assessment: Do you want to hurt yourself or someone else? Patient reports no desire to harm self or others. Onset of symptoms is unknown. 19:17 Method Of Arrival: Ambulatory vc1 19:17 Acuity: ASCENCION 3 vc1 Triage Assessment: 19:19 General: Appears in no apparent distress. uncomfortable, ill, Behavior is calm, vc1 cooperative, appropriate for age. Pain: Complains of pain in left low back and right low back Pain does not radiate. Pain currently is 9 out of 10 on a pain scale. Neuro: No deficits noted. Cardiovascular: No deficits noted. Respiratory: No deficits noted. : Reports pain in right in left flank(s), with urination. 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 Flu vaccine is not up to date. - Social history:: Smoking status: Patient denies any tobacco usage or history of. Screenin:41 Abuse screen: Denies threats or abuse. Nutritional screening: No deficits noted. vc1 Tuberculosis screening: No symptoms or risk factors identified. Fall Risk None identified. Assessment: 21:34 General: Appears uncomfortable, ill, Behavior is cooperative, anxious. Pain: Complains bb of pain in back. Neuro: Level of Consciousness is awake, alert, obeys commands, Oriented to person, place, time, situation. Cardiovascular: Capillary refill < 3 seconds Patient's skin is warm and dry. Respiratory: Respiratory effort is even, unlabored. GI: Abdomen is round. Derm: Skin is pink, warm \\T\\ dry. Musculoskeletal: Circulation, motion, and sensation intact. Reports pain in back. 22:45 Reassessment: Patient is alert, oriented x 3, equal unlabored respirations, skin bb warm/dry/pink. IV site intact, patent, family at bedside. 10/09 01:42 Reassessment: Patient is alert, oriented x 3, equal unlabored respirations, skin vc1 warm/dry/pink. Patient states symptoms have improved. Neuro: No deficits noted. 01:52 Reassessment: report given to receiving RN for room 272. bb Vital Signs: 10/08 19:17 BP 129 / 99; Pulse 87; Resp 16; Temp 98; Pulse Ox 100% ; Weight 90.72 kg; Height 5 ft. vc1 5 in. (165.10 cm); Pain 9/10; 22:46 BP 134 / 93; Pulse 93; Resp 16 S; Temp 97.7(O); Pulse Ox 100% on R/A; bb 10/09 01:41 BP 104 / 68; Pulse 116; Resp 18; Temp 96.8; Pulse Ox 100% on R/A; Pain 0/10; vc1 10/08 19:17 Body Mass Index 33.28 (90.72 kg, 165.10 cm) vc1 ED Course: 10/08 18:52 Patient arrived in ED. as 19:19 Triage completed. vc1 19:19 Arm band placed on right wrist. vc1 19:19 Patient has correct armband on for positive identification. vc1 21:11 Jhoan Godinez PA is PHCP. cp 21:11 Toni Mueller MD is Attending Physician. cp 21:34 Calcote, Farida, RN is Primary Nurse. vc1 22:01 CBC with Automated Diff Sent. vc1 22:01 Basic Metabolic Panel Sent. vc1 22:02 Blood Culture Adult (2) Sent. vc1 22:02 Lactate Sent. vc1 22:02 Procalcitonin Sent. vc1 22:02 Basic Metabolic Panel Sent. vc1 22:02 CBC with Diff Sent. vc1 22:02 Hepatic Function Sent. vc1 22:02 Lipase Sent. vc1 22:37 US Rp Exam Complete In Process Unspecified. EDMS 22:37 US OB Limited In Process Unspecified. EDMS 22:56 Blood Culture Adult (2) Sent. vc1 23:53 Sherif Wiggins MD is Hospitalizing Provider. 10/09 00:33 COVID-19 SARS RT PCR (Document "Date of Onset" if Symptomatic) Sent. vc1 01:52 No provider procedures requiring assistance completed. Patient admitted, IV remains in bb place. 04:33 Blood Culture Adult (2) Sent. vc1 04:33 Urine Microscopic Only Sent. vc1 Administered Medications: 10/08 21:54 Drug: Zofran (Ondansetron) 4 mg Route: IVP; Site: right antecubital; ll3 22:56 Follow up: Response: No adverse reaction vc1 21:54 Drug: Pepcid (famotidine) 20 mg Route: IVP; Site: right antecubital; 3 22:56 Follow up: Response: No adverse reaction vc1 22:45 Drug: NS 0.9% 1000 ml Route: IV; Rate: 1 bolus; Site: right antecubital; bb 23:45 Follow up: IV Status: Completed infusion; IV Intake: 1000ml bb 22:45 Drug: morphine 4 mg {Note: RASS 0.} Route: IVP; Site: right antecubital; 10/09 01:54 Follow up: Response: No adverse reaction; RASS: Alert and Calm (0) 10/08 23:51 Drug: Rocephin - (cefTRIAXone) 1 grams Route: IVPB; Infused Over: 30 mins; Site: right vc1 antecubital; 10/09 00:20 Follow up: IV Status: Completed infusion; IV Intake: 50ml bb 00:33 Drug: morphine 4 mg Route: IVP; Site: right antecubital; vc1 01:53 Follow up: Response: No adverse reaction; RASS: Alert and Calm (0) bb 00:34 Drug: metroNIDAZOLE 500 mg Volume: 100 ml; Route: IVPB; Infused Over: 30 mins; Site: vc1 right antecubital; 01:04 Follow up: IV Status: Completed infusion; IV Intake: 100ml bb Intake: 10/08 23:45 IV: 1000ml; Total: 1000ml. bb 10/09 00:20 IV: 50ml; Total: 1050ml. bb 01:04 IV: 100ml; Total: 1150ml. bb Outcome: 10/08 23:53 Decision to Hospitalize by Provider. cp 10/09 01:52 Admitted to L \\T\\ D, accompanied by tech, via wheelchair, room 272, with chart, Report bb called to receiving RN Condition: stable Instructed on the need for admit. 02:01 Patient left the ED. bb Signatures: Dispatcher [employer] EDTari Chester Brenda, RN RN bb Jhoan Godinez PA PA cp Loubet, Lynsea RN RN ll3 Farida Craven, RN RN vc1
[2021-10-09] MEDS ORDERED: MORPHINE 4 MG/ML SYR ONE (00:28)
[2021-10-09] MEDS ORDERED: METRONIDAZOLE 500mg IVPB 500 MG/100 ML BAG IV ONE (00:28)
[2021-10-09] MEDS ORDERED: METRONIDAZOLE 500mg IVPB 500 MG/100 ML BAG IV SCH (02:22)
[2021-10-09] MEDS ORDERED: ACETAMINOPHEN 500 MG TAB PO PRN (02:22)
[2021-10-09 02:35] VITALS: BMI 33.3
[2021-10-09] MEDS: NA CHLORIDE 0.9% 1,000 ML IV SCH ×3 (02:48→23:39)
[2021-10-09] MEDS: MORPHINE 2 MG/ML SYR IV PRN ×2 (02:59→06:32)
[2021-10-09 05:58] LABS: Absolute Lymphocytes (CBC) 1.3 K/uL (0.7-4.9); Hematocrit 32.4 % (36.0-45.0); Lymphocytes % 9.9 % (15.3-44.8); MPV 9.6 fL (7.6-11.3)
[2021-10-09] MEDS: ONDANSETRON 4 MG/2 ML VIAL IV PRN ×3 (06:32→20:06)
[2021-10-09 06:35] LABS: ALT/SGPT 24 U/L (12-78); AST/SGOT 12 U/L (15-37); Albumin 2.4 g/dL (3.4-5.0); Alkaline Phosphatase 69 U/L (45-117); BUN Blood Urea Nitrogen 3 mg/dL (7-18); Bicarbonate 22 mmol/L (21-32); Bilirubin Total 0.2 mg/dL (0.2-1.0); Glucose Level 92 mg/dL (74-106); Potassium 3.9 mmol/L (3.5-5.1); Protein, Total 6.1 g/dL (6.4-8.2); Sodium Level 138 mmol/L (136-145)
[2021-10-09] MEDS ORDERED: KETOROLAC 30 MG/ML INJ IV ONE (07:49)
[2021-10-09] MEDS: METRONIDAZOLE 500mg IVPB 500 MG/100 ML BAG IV SCH ×3 (08:00→23:41)
[2021-10-09] MEDS: MORPHINE 4 MG/ML SYR IV PRN ×3 (08:18→20:05)
--- NOTE | 2021-10-09 08:49 | PREOPHP ---
Date of Admission: 10/09/2021 26-year-old, primigravida 19 weeks followed antepartum without complications. She had sudden onset o f right flank pain, fever at home, she says, and chills, came to the emergency room. Diagnosis is py elonephritis. Ultrasound demonstrates bilateral hydronephrosis, no stone visible on ultrasound. She has been started on Rocephin 1 g every 24 hours and Flagyl 500 mg every 8 hours. For whatever reaso n, urinalysis has been canceled that would have been nice to have the urinalysis, so we could get a c ulture. I will see if that is pending, now that she has had antibiotics, of course that is probably not going to be helpful. Family History: Shows maternal grandmother with diabetes and high blood pressure. Paternal grandfat her with diabetes and stroke. Allergies: THE PATIENT HERSELF HAS NO ALLERGIES. Past Surgical History: She has had no previous surgeries. She said when she was 18, they thought she might have passed a kidney stone at that point. She has b een taking vitamins and iron prior to admission. Physical Examination: HEENT: Clear. Pupils are equal, round, reactive to light and accommodation. Conjunctivae well perfu sed. No oral, lingual, or buccal lesions. Chest and Lungs: In the emergency room is clear. Heart: W ithout murmurs in the emergency room. Breasts: Not examined. Abdomen: Obese. Back: The patient does have significant right CVA tenderness. Extremities: Clear. Pelvic: Not done today. Assessment And Plan: Diagnosis at this point is intrauterine 19 weeks and right pyelonephr itis, possibility of a stone. I have discussed with the patient, we will order a 1 shot IVP. If she does have a stone, Dr. Sharpe will be consulted. If no stone, we will continue with present management until she is better. Full discussion with the patient. AMXIMO/CORINA Voice ID: [id number]
[2021-10-09 09:03] LABS: Urine Appearance CLEAR (Clear); Urine Bilirubin NEGATIVE (Negative); Urine Blood NEGATIVE (Negative); Urine Color YELLOW (Yellow); Urine Glucose NEGATIVE (Negative); Urine Protein NEGATIVE (Negative); Urine Urobilinogen 0.2 mg/dL (0.2-1.0)
[2021-10-09 10:01] LABS: Urine Bacteria <20 /HPF (<20); Urine RBC <5 /HPF (NONE SEEN); Urine Urothelial Cells <5 /HPF (NONE SEEN)
[2021-10-09] MEDS: CEFTRIAXONE 1,000 MG in NA CHLORIDE 0.9% 50 ML IVPB SCH (11:29)
--- NOTE | 2021-10-09 12:14 | RAD REPORT ---
EXAM DESCRIPTION: RAD - Urograph (IVP) - 10/09/2021 11:54 am CLINICAL HISTORY: Abdominal pain COMPARISON: October 08, 2021 ultrasound FINDINGS: A toll gate keeper film was not obtained. Patient has an approximately 19 week IUP. 100 cc Isovue-300 administered intravenously. Frontal views of the abdomen and pelvis obtained. 5 min utes film and 10 minutes films were taken. Total of 3 films Mild right hydronephrosis is present. A large filling defect within the visualize contrast within the right genitourinary system is not seen. On the 5 minutes film contrast is not seen within the right ureter. There is contrast within the proximal left ureter. 4 millimeter filling defect seen within the mid left ureter. Left ureter is only opacified with contr ast on 1 image in this location Distal right ureter is not opacified throughout the exam. Only a portion of the bladder is included in the field view and is presumably compressed by the uteru s. No left hydronephrosis IMPRESSION: Limited IVP. Mild right hydronephrosis. Small filling defect within right pyelocaliceal structures is not seen but could be missed on this exam. No contrast is seen within the proximal right ureter on the 5 minutes film. This is questionable for a mild delay of excretion of contrast from the right kidney 4 millimeter filling defect within the left ureter. Given that the patient does not have left-sided s ymptoms this probably is not significant.
[2021-10-09 14:09] LABS: Magnesium 1.5
[2021-10-09] MEDS ORDERED: INFLUENZA VACCINE (for 6+ mo) 0.5 ML DOSE IMVAC ONE (15:00)
--- NOTE | 2021-10-09 19:15 | RAD REPORT ---
EXAM DESCRIPTION: US - OB Limited - 10/08/2021 10:36 pm COMPARISON: None. CLINICAL HISTORY: HS MAIN ABD PAIN TECHNIQUE: Multiple transabdominal sonographic images of the pelvis were obtained. FINDINGS: Fetus: Single living intrauterine gestation in the variable presentation has a heart rate of 163 beats per minute. Placenta/Cervix: Placenta is posterior. Cervical length is 3.6 cm. Amniotic Fluid: Amniotic fluid volume appears subjectively normal. Biometric measurements: Biparietal diameter is 46 mm (19 weeks 5 days). Head circumference is 170 mm (19 weeks 4 days). Abdominal circumference is 133 mm (18 weeks 5 days). Femur length is 28 mm (18 weeks 4 days). Estimated gestational age by this ultrasound: 19 weeks 0 days Estimated date of delivery by this ultrasound: 03/04/2022 Estimated weight: EFW is 262 grams (9 ounces). IMPRESSION: 1. Single living intrauterine gestation with a heart rate of 163 beats per minute and a gestational age by this ultrasound of 19 weeks 0 days. 2. Placenta is posterior. Electronically signed by: Kendall Car MD 10/09/2021 12:03 AM NATIONAL VAN OWNER OPERATOR Due to temporary technical issues with the PACS/Fluency reporting system, reports are being signed by the in house radiologists without review as a courtesy to insure prompt reporting. The interpreting radiologist is fully responsible for the content of the report.
--- NOTE | 2021-10-09 19:38 | RAD REPORT ---
EXAM DESCRIPTION: US - Renal Ultrasound-Complete - 10/08/2021 10:36 pm CLINICAL HISTORY: 26 years Female flank pain, positive TECHNIQUE: Grayscale and Doppler ultrasound imaging of the retroperitoneum was performed to further evaluate the kidneys and bladder. This study was performed on 10/08/2021 at 10:17 PM. COMPARISON: None. FINDINGS: The right kidney measures 10.8 x 5.0 x 4.5 cm. The renal cortex is grossly normal in thi ckness. There is no evidence of renal mass or perinephric fluid collection. There is a mildly dil ated right renal collecting system. There is a 6 mm focal area of increased echogenicity within the r ight kidney with associated posterior shadowing likely representing a renal calculus. There are very small areas of decreased echogenicity within the right renal cortex likely representing renal cysts. The left kidney measures 9.3 x 5.0 x 5.3 cm. The renal cortex is grossly normal in thickness. The re is no evidence of renal mass, calculi or perinephric fluid collection. There are very small cyst ic areas within the left renal cortex. There is evidence of normal color Doppler flow to both kidneys. There is no free fluid identified. The bladder is well distended and smooth in contour. IMPRESSION: 1. Mild right-sided hydronephrosis. 2. 6 mm right renal calculus. 3. Very small cystic areas within the left renal cortex. 4. Grossly normal sonographic evaluation of the bladder. Electronically signed by: Autumn Sommer DO 10/09/2021 12:03 AM PRODUCTION OPERATIONS INSPECTOR Due to temporary technical issues with the PACS/Fluency reporting system, reports are being signed by the in house radiologists without review as a courtesy to insure prompt reporting. The interpreting radiologist is fully responsible for the content of the report.
[2021-10-10] MEDS: METRONIDAZOLE 500mg IVPB 500 MG/100 ML BAG IV SCH ×4 (00:03→23:34)
[2021-10-10] MEDS: ONDANSETRON 4 MG/2 ML VIAL IV PRN ×2 (01:49→17:44)
[2021-10-10] MEDS: MORPHINE 4 MG/ML SYR IV PRN (01:49)
[2021-10-10 05:51] LABS: Absolute Lymphocytes (CBC) 1.4 K/uL (0.7-4.9); Hematocrit 34.1 % (36.0-45.0); Lymphocytes % 14.6 % (15.3-44.8); MPV 9.5 fL (7.6-11.3); RBC Red Blood Cell Count 3.87 M/uL (3.86-4.86)
[2021-10-10 07:47] LABS: ALT/SGPT 25 U/L (12-78); AST/SGOT 17 U/L (15-37); Albumin 2.6 g/dL (3.4-5.0); Alkaline Phosphatase 73 U/L (45-117); BUN Blood Urea Nitrogen 6 mg/dL (7-18); Bicarbonate 22 mmol/L (21-32); Bilirubin Total 0.2 mg/dL (0.2-1.0); Glucose Level 87 mg/dL (74-106); Potassium 3.9 mmol/L (3.5-5.1); Protein, Total 6.5 g/dL (6.4-8.2); Sodium Level 137 mmol/L (136-145)
[2021-10-10] MEDS: Oxycodone HCl/Acetaminophen 1 TAB TAB PO PRN ×4 (08:14→19:52)
--- NOTE | 2021-10-10 08:49 | PN ---
The patient is still afebrile. White blood count is going down. The patient still states her pain l rolly is 7/10. We will try to switch her from morphine to Percocet to see if we can slowly come down on the level of pain medication. She knows the same go exist at 24 hours without any pain in the fla nk and send her home on 10 days of antibiotic therapy and then 1 a day Macrobid through the rest of t he . Her IVP yesterday was negative for stone, so same approach that we have had here will continue. Her appetite is improving, which is a good sign. She is ambulating well, which is a good sign. So, I think we are probably on the brink of improvement. If she is not better by tomorrow, I will get an Internal Medicine consult to see if they have any ideas about antibiotics since no urinal ysis was done and she has been on antibiotics and culture at this point would probably not be useful or practical. MAXIMO/CORINA Voice ID: [id number] Report ID: [id number]
[2021-10-10] MEDS: NA CHLORIDE 0.9% 1,000 ML IV SCH ×2 (09:56→20:35)
[2021-10-10] MEDS: CEFTRIAXONE 1,000 MG in NA CHLORIDE 0.9% 50 ML IVPB SCH (12:00)
[2021-10-10 16:19] LABS: Magnesium 1.5
--- NOTE | 2021-10-10 16:58 | P.CNS ---
Date of Consult: 10/10/21 Reason for Consult: intractable pain Requesting Physician: Rasheed Wiggins Chief Complaint: R back / flank pain History of Present Illness: 26yo 19wk GA presented to ED due to severe right flank pain that wrapped around towards her abdomen. She presented to the ED on 10/07, suspected to have a UTI, started on Macrobid and discharged home. The following day, was when she presented to the ED with severe right flank pain. At home she was unable to get comfortable due to the pain. Pain was worsened when she felt her bladder was full and she needed to urinate, worsened at the end of urination as well. Denies any foul-smelling odor to her urine, no blood, no change in color. Reports some nausea/vomiting today hospital. States when the pain began several days ago, she first felt the pain was across both sides of her back, the following day or 2 the pain was only on the right side. She reports having a UTI July 2021, received 7-day antibiotic course, symptoms resolved. She did then had another episode of UTI and again reviewed a course of antibiotics. Reportedly this was due to Enterococcus. States she was told she may have had a kidney stone when she was 18 years old, however ultrasound was negative. UA on 10/07 revealed some bacteriuria, but positive squamous epithelial cells, otherwise negative. Urine culture with mixed mamta 10k-100k CFU's. UA on 10/08 was completely normal. Blood cultures without any growth. She has been on Rocephin and Flagyl since admission. She had mild leukocytosis which has since improved, has remained afebrile. Renal ultrasound and IVP show mild right-sided hydronephrosis. IVP was inconclusive to rule out a ureterolithiasis. Despite treatment with IV antibiotics and IV fluids, patient continued with severe pain, so I was consulted for further recommendations. Allergies No Known Allergies Allergy (Unverified 10/09/21 02:07) Home medications list reviewed: Yes Home Medications: 95/Iron Fum/Folic/Dha [ + Dha Combo Pack] 1 each PO DAILY 10/09/21 - Past Medical/Surgical History -: Possible kidney stone at 18 years old Past Surgical History: Patient denies surgical history - Family History Father Medical History: Hypertension - Social History Smoking Status: Never smoker Alcohol use: No Place of Residence: Home Review of Systems 10-point ROS is otherwise unremarkable Physical Examination Temp Pulse Resp BP Pulse Ox 99.2 F 86 18 132/68 100 10/10/21 16:00 10/10/21 16:00 10/10/21 16:00 10/10/21 16:00 10/10/21 16:00 General: Alert, Oriented x3, Other (Uncomfortable appearing) HEENT: EOMI, Sclerae nonicteric Respiratory: Clear to auscultation bilaterally Cardiovascular: No edema, Regular rate/rhythm Gastrointestinal: Other (gravid, no suprapubic tenderness) Musculoskeletal: Other (+R CVA tenderness) Neurological: Normal speech, Normal affect Laboratory Data (last 24 hrs) 10/10/21 05:03: Sodium 137, Potassium 3.9, BUN 6 L, Creatinine 0.49 L, Glucose 87, Magnesium 1.5, Total Bilirubin 0.2, AST 17, ALT 25, Alkaline Phosphatase 73 10/10/21 05:03: WBC 9.80 D, Hgb 11.5 L, Hct 34.1 L, Plt Count 228 Physician Review Additional Text: Problem list Intractable right back/flank pain concerning for ureterolithiasis Mild right hydronephrosis 2 recurrent UTIs in the last ~10weeks Intrauterine , 19 weeks gestation I agree with Dr. Wiggins, clinically the patient likely has a right-sided ureterolithiasis/nephrolithiasis Mild right hydronephrosis on ultrasound IVP inconclusive, due to delayed contrast excretion/suboptimal views Pain control per Dr. Wiggins, continue IV antibiotics Continue IV fluids N.p.o. after midnight Discussed with urology and radiology, will attempt for MRI abdomen/pelvisurogram protocol to evaluate for filling defect on the right side If stone is confirmed, patient will likely undergo ureteral stenting If imaging remains inconclusive, may need to transfer to tertiary care center to rule out stone prior to subjecting patient and fetus to anesthesia Time Spent Managing Pts care (In Minutes): 60
[2021-10-11] MEDS: Oxycodone HCl/Acetaminophen 1 TAB TAB PO PRN ×2 (00:06→07:00)
[2021-10-11 05:56] LABS: Absolute Lymphocytes (CBC) 1.5 K/uL (0.7-4.9); Hematocrit 30.9 % (36.0-45.0); Lymphocytes % 15.7 % (15.3-44.8); MPV 9.4 fL (7.6-11.3); RBC Red Blood Cell Count 3.51 M/uL (3.86-4.86)
--- NOTE | 2021-10-11 06:23 | P.PN ---
Date of Service: 10/11/21 Subjective: No acute events/changes overnight Continues with right\flank pain Woke up with bladder fullness and pain right\flank again No nausea/vomiting, no abdominal pain ROS: 10 point ROS as noted above, otherwise negative Physical exam GEN: Alert, oriented, NAD HEENT: Normal conjunctiva, sclera anicteric CV: Regular rate and rhythm Pulm: Nonlabored respirations on room air ABD: Gravid, no tenderness MSK: Right CVA tenderness to palpation Integumentary: No rashes Neuro: Normal speech, normal affect Problem list Intractable right back/flank pain concerning for ureterolithiasis Mild right hydronephrosis 2 recurrent UTIs in the last ~10weeks Intrauterine , 19 weeks gestation clinically the patient likely has a right-sided ureterolithiasis/nephrolithiasis Mild right hydronephrosis on ultrasound IVP inconclusive, due to delayed contrast excretion/suboptimal views Pain control, IV antibiotics, IV fluids Discussed with urology and radiology, will attempt for MRI abdomen/pelvisurogram protocol to evaluate for filling defect on the right side If stone is confirmed, patient will likely undergo ureteral stenting NPO for MRI today and possible stent if +stone If no stone/filling defect seen on MRI, will also obtain RUQ ultrasound to evaluate gallbladder. LFTs ok If imaging remains inconclusive, may need to transfer to tertiary care center to rule out stone prior to subjecting patient and fetus to anesthesia Code: full Dispo: pending further evaluation Time Spent Managing Pts Care (In Minutes): 35
[2021-10-11 06:25] LABS: ALT/SGPT 32 U/L (12-78); AST/SGOT 24 U/L (15-37); Albumin 2.3 g/dL (3.4-5.0); Alkaline Phosphatase 64 U/L (45-117); BUN Blood Urea Nitrogen 5 mg/dL (7-18); Bicarbonate 22 mmol/L (21-32); Bilirubin Total 0.2 mg/dL (0.2-1.0); Glucose Level 82 mg/dL (74-106); Potassium 3.7 mmol/L (3.5-5.1); Protein, Total 5.9 g/dL (6.4-8.2); Sodium Level 137 mmol/L (136-145)
[2021-10-11] MEDS: NA CHLORIDE 0.9% 1,000 ML IV SCH ×2 (06:52→14:22)
--- NOTE | 2021-10-11 08:22 | PN ---
The patient remains afebrile. We discontinued the metronidazole. She was seen in consultation xiang bach with Dr. Haynes, who also consulted with Dr. Sharpe. They are planning an MRI on the right side to see if there is a stone, it did show up on the abbreviated IVP. They have talked to the patient about doing a stent or even a nephrostomy, but whether or not Dr. Sharpe would do that or whether or not we would send her to another facility remains to be seen. Right now, I have informed the patien t basically on deferring to Dr. Sharpe for further management of this case. From an obstetrical sta ndpoint, she is quite stable. It appears that the possibility of her stone is even more likely, but we will see what the imaging shows today. MAXIMO/CORINA Voice ID: [id number] Report ID: [id number]
[2021-10-11] MEDS ORDERED: FUROSEMIDE 40 MG/4 ML VIAL IV ONE (11:05)
[2021-10-11] MEDS: CEFTRIAXONE 1,000 MG in NA CHLORIDE 0.9% 50 ML IVPB SCH (11:22)
[2021-10-11] MEDS ORDERED: MORPHINE 4 MG/ML SYR IV ONE ×2 (14:04→15:00)
--- NOTE | 2021-10-11 14:06 | RAD REPORT ---
EXAM DESCRIPTION: MRI - Abdomen WWo Cont - 10/11/2021 1:45 pm CLINICAL HISTORY: r/o right nephrolithiasis/ureterolithiasis Ongoing , right-sided flank pain COMPARISON: Urograph (IVP) dated 10/09/2021 FINDINGS: Contrast enhanced MR urography was performed. Exam is limited. Single intrauterine gestation is identified in cephalic position. Placenta is posterior. Adequate vol ume of amniotic fluid seen. Both kidneys are normal in size. Mild hydronephrosis is present bilaterally, slightly greater on the right. The ureters appear compressed at the mid aspect by the gravid uterus. The distal ureters are n ot well assessed due to this decompression. The mid and proximal ureters bilaterally do not show evidence of a filling defect to suggest stone. T he lower tract of the ureters is difficult to visualize due to compression by the gravid uterus. IMPRESSION: Limited MR urography was performed. Mild hydronephrosis is seen in both kidneys, slightl y greater on the right. No finding suspicious for a stone is seen in the mid and upper tract of the system. Lower tract ev aluation is limited due to compression of both ureters by the gravid uterus.
[2021-10-11 15:00] LABS: Magnesium 1.4
--- NOTE | 2021-10-11 16:33 | RAD REPORT ---
EXAM DESCRIPTION: US - Abdomen Exam Limited - 10/11/2021 4:19 pm CLINICAL HISTORY: Abdominal pain. COMPARISON: None. FINDINGS: The gallbladder wall is not thickened. A gallstone is not seen. The biliary tree is normal caliber. The liver has a normal echotexture. It is normal size. Hepatopetal flow. A lesion is not visualized. IMPRESSION: Unremarkable liver and gallbladder ultrasound.
[2021-10-11] MEDS: OXYBUTYNIN CHLORIDE 5 MG TAB PO SCH (18:14)
[2021-10-12] MEDS: ONDANSETRON 4 MG/2 ML VIAL IV PRN ×2 (00:23→05:54)
[2021-10-12] MEDS: NA CHLORIDE 0.9% 1,000 ML IV SCH (04:29)
[2021-10-12] MEDS: Oxycodone HCl/Acetaminophen 1 TAB TAB PO PRN ×3 (05:53→21:41)
[2021-10-12] MEDS: OXYBUTYNIN CHLORIDE 5 MG TAB PO SCH ×4 (05:55→21:41)
--- NOTE | 2021-10-12 08:34 | PN ---
The patient continues to have confusing clinical picture. Ultrasound of the urinary system, 1 shot I INTELLIGENCE DIRECTOR which actually consisted of 3 shots and now MRI have all failed to show kidney stone. The patient continues to have colic on the right side. She continues to be afebrile. White count is normal. S he has some return of her appetite. She had bladder scan yesterday after urinating, urinated about 4 00 cc, but still had 300 left, urinated again, still has a residual of 250 cc. She was put on antisp asmodic yesterday, we may remove that today. She has been consulted with Dr. Haynes and then Dr. Juno la. Dr. Sharpe will see her today, has seen her during this hospitalization and discussed whether or not to place a stent to see if that might help. If the patient does not think that stent is a goo d idea, then there is no other options left. I do not think he will probably dismiss the patient to follow up in the [facility] where she was being seen prior to this admission. There is certainly no thing life threatening going on. The patient is alert this morning, not in any obvious pain. I told the nurses that her discomfort was less last night and actually slept through most of the night with out any pain medicine. Full discussion at length this morning with the patient and we will see what Dr. Sharpe decides to do. She has been n.p.o. since midnight, but if no stent placement is suggested or excepted, we will dismiss her sometime today to follow up in the [facility]. MAXIMO/CORINA Voice ID: [id number] Report ID: [id number]
[2021-10-12] MEDS: CEFTRIAXONE 1,000 MG in NA CHLORIDE 0.9% 50 ML IVPB SCH (11:28)
[2021-10-12] MEDS ORDERED: Magnesium Sulfate 2gm IVPB 2 G/50 ML BAG IV ONE (12:30)
[2021-10-12] MEDS ORDERED: Ringers Lactate 1,000 ML IV ONE (16:34)
[2021-10-12] MEDS ORDERED: propofoL 200 MG/20 ML VIAL IV ONE (17:26)
[2021-10-12] MEDS ORDERED: FENTANYL CITR 100 MCG/2 ML ONE (17:26)
[2021-10-12] MEDS ORDERED: LIDOCAINE 1% MPF 5 ML VIAL ONE (17:26)
[2021-10-12] MEDS ORDERED: NS 0.9% VIAL 10 ML ONE (17:52)
[2021-10-12] MEDS ORDERED: Phenylephrine HCl 10 MG/ML 1 ML VIAL ONE (17:52)
[2021-10-12] MEDS ORDERED: KETOROLAC 30 MG/ML INJ ONE (17:54)
[2021-10-12] MEDS ORDERED: ONDANSETRON 4 MG/2 ML VIAL ONE (18:09)
--- NOTE | 2021-10-12 18:09 | CON ---
Date of Consultation: 10/10/2021 Reason For Consultation: Right flank pain and right hydronephrosis. History Of Present Illness: Ms. Thakkar is a 26-year-old female, who is 19 weeks and has been seen and admitted on 2 different occasions with right flank pain and suspected pyelonephritis. She was treated with antimicrobial therapy and discharged initially, but she returned days later with sim ilar flank pain. She describes the flank pain to have been present over the course of the last week, but in August, earlier on in her , she had a urinary tract infection which was treated, b ut she denied having any flank pain at the time. The pain is mostly in the right flank and does radi ate into the right lower quadrant. It is crampy, but occasionally sharp in nature and severe enough to require hospitalization. She has been treated with ceftriaxone IV antimicrobial prophylaxis over the last 4 days since her admission, yet the flank pain persists. She denied any associated fever or chills. An IVP was obtained with suggestion of possible ureteral filling defect on the right associated with some pelvocaliectasis and ureteronephrosis, but no definitive stone was seen. Physical Examination: General: The patient was well-appearing and in no acute distress. Lungs: She had no dyspnea or use of accessory muscles to breathe and was in no respiratory distress. Abdomen: Gravid, but soft, nontender, and nondistended. She had no left CVA tenderness, but she had right CVA tenderness. Assessment And Recommendations: This is a 26-year-old, 19-week gravid patient with right-sided hydro ureteronephrosis associated with severe flank pain radiating into the right lower quadrant in the abs ence of definitive sign of pyelonephritis, but with potential calculus related obstruction impercepti ble to KUB. I recommended MR urography to assess for filling defect suspicious for the presence of a n obstructing calculus. If a stone is identified, she definitely would benefit from, and the risk wo uld be justified for a modest amount of anesthesia, in order to place a right ureteral stent. If no stone is definitively seen, she may be treated continually with antimicrobial therapy for the presump tive pyelonephritis, but if this fails to resolve her pain after a period of time, operative retrogra de pyelography and stent placement would then be considered. Alternatively, a percutaneous nephrosto my tube could be placed. WR/MODL Voice ID: [id number] Report ID: [id number]
[2021-10-12 19:31] VITALS: O2SAT 100
--- NOTE | 2021-10-12 22:49 | PN ---
Interval History: Ms. Bijan hutton is a 26-year-old female who is 19 weeks with a significan t right flank pain that radiates to the anterior right lower quadrant with right-sided hydronephrosis greater than the left that has failed to improve despite antimicrobial therapy as an outpatient and 4 days of ceftriaxone as an inpatient. She underwent MR urography as recommended on 10/11/2021, and while mild hydronephrosis was observed bilaterally greater on the right, they felt the ureters appear ed compressed at the mid aspect by a gravid uterus. The distal ureters were not well assessed due to this decompression. They also did not see any filling defect within the mid and proximal ureters to suggest a stone. As a result, after further observation with failure to improve her pain despite th e antimicrobial therapy, I recommended we consider proceeding with operative evaluation and placement of a right ureteral stent to relieve the potential obstruction potentially from a stone invisible to prior evaluation thus far. As a result, I counseled the patient on the planned evaluation to include a right retrograde pyelogra m, followed by right ureteral stent placement. The risks of the procedure were discussed to include those of anesthesia, but also the potential increased risk of ascending infection due to the presence of a stent should she have development of a cystitis. Side effects were discussed to include increa sed urgency to urinate and urinary frequency associated with some flank discomfort during voiding, an d risks of the procedure to include infection, ureteral injury, urethral stricture were discussed. T he patient consented and elected to proceed recognizing the alternative would be placement of a right percutaneous nephrostomy tube, which she did not wish given the additional several months of pregnan cy she has at stake. Sidebar consultation with Dr. Valencia, the anesthesiologist revealed a lesser degr ee of concern associated with administering anesthesia at this phase of her since or going to [place] had largely already occurred by this point. As a result, after counseling, we agreed to p roceed with retrograde pyelogram and stent placement on the right side since that was the side where she was symptomatic. JANIYA/MODL Voice ID: [id number] Report ID: [id number]
--- NOTE | 2021-10-13 02:10 | OP ---
Surgeon: MILAGROS MORENO Preoperative Diagnoses: 1.Right flank pain. 2.Right-sided hydronephrosis. Postoperative Diagnoses: 1.Right flank pain. 2.Right-sided hydronephrosis. 3.Right papillary necrosis. Principal Procedure: 1.Cystoscopy. 2.Right retrograde pyelography. 3.Right ureteral stent placement. Findings: Delayed right nephrogram with transition at mid ureter associated with slight resistance a nd passage of the ureteral stent, which otherwise passed and coiled nicely in the renal pelvis. Indication For Procedure: See consultation followup performed prior to the operative excursion today . Procedure In Detail: The patient was consented in the preoperative holding area before being transfe rred to the operative suite where general anesthesia was induced. She was already being treated with ceftriaxone, which should have been adequate antimicrobial prophylaxis. Pneumoboots were provided f or DVT prophylaxis. She was placed in the lithotomy position, padded and secured to the table approp riately. Her genitalia were prepped using Hibiclens and draped in standard fashion. The case was be gun using a 22-Haitian rigid cystoscope to traverse the urethra and into the bladder with ease. The b ladder was decompressed of fluid and urine, and the ureteral orifices were orthotopic in location. T he right ureteral orifice was easily cannulated with a tip of a 5-Haitian ureteral access catheter and a retrograde pyelogram was performed. Two spots of fluoroscopic imagery were obtained where the ini tial image identified the presence of contrast injected that was delayed at the level of the mid uret er before entering a uretero-nephrotic segment proximal to it or to the point of obstruction. Repeat spot fluoroscopic imagery, the second, revealed contrast in the renal pelvis with moderate hydroneph rosis and pelvocaliectasis. As a result, I then passed the Sensor wire via the 5-Haitian ureteral acc ess catheter until I felt gentle resistance, and the third spot fluoroscopic image was obtained, conf irming the presence of the wire coiled in the upper pole of the kidney. I then passed the stent, a 6 -Haitian by 24 cm double-J ureteral stent, over the wire and it did coil within the renal pelvis with ease and appropriately. An additional coil was formed within the bladder. Of note, while the wire was in place, there was efflux from the ureter of some fibrinous material con sistent with papillary necrosis. Her bladder was decompressed of fluid and urine after the stent was properly positioned, and she was taken out of the lithotomy position. She was then awakened from ge neral anesthesia, transferred to a stretcher, and then transferred to the recovery room in good condi tion. Complications: None. Discharge Disposition: She can be managed expectantly by the labor and delivery team and her gynecol ogist, Dr. Wiggins, with hopeful significant improvement in her flank pain at this point. I did explai n to the patient the potential flank discomfort that may occur associated with voiding due to the pre sence of the ureteral stent, but the chronicity and character of the pain should be significantly imp roved. Subsequent followup should be established with me in the Urology Clinic in about 3 months wit h her anticipated delivery somewhere within the next 20 weeks. At that time, we will plan post deliv rios ureteroscopic evaluation and management of a stone if one is identified. To that end, we will co nsider obtaining a CT scan after she delivers to assess for the presence of a calculus alongside the stent. JANIYA/CORINA Voice ID: [id number] Report ID: [id number]
[2021-10-13] MEDS: OXYBUTYNIN CHLORIDE 5 MG TAB PO SCH ×2 (03:30→11:10)
[2021-10-13] MEDS: NA CHLORIDE 0.9% 1,000 ML IV SCH (03:30)
[2021-10-13] MEDS: Oxycodone HCl/Acetaminophen 1 TAB TAB PO PRN ×2 (03:30→07:41)
--- NOTE | 2021-10-13 07:18 | RAD REPORT ---
EXAM DESCRIPTION: RAD - Urethrocystogrphy Retrograde - 10/13/2021 7:09 am FINDINGS: There were 4 fluoroscopic KUB images obtained during fluoroscopic assisted retrograde uret hrocystography. No suspicious or unexpected finding from the procedure. Fluoro time was 0.01 minutes. Cumulative dose was 0.6 mGy.
--- NOTE | 2021-10-13 08:33 | DS ---
Hospital Course: The patient was admitted for diagnosis of possible pyelonephritis, possible obstruc tive uropathy. Underwent imaging including ultrasound, 1 shot IVP, and MRI with no definite stone no grecia; however, it was still thought that the patient had renal colic secondary to some type of obstruc tion. Dr. Sharpe took the patient to surgery, put a stent, and now she says her back pain is comple tely gone. Of course, she is having some irritation with urination, but otherwise clear. We will le t her get up, ambulate, feed her breakfast, and then dismiss her. She will continue to take Macrobid 100 mg once a day. She is to see Dr. Sharpe in 3 months for removal of the stent prior to delivery . She has been seen by [facility]. She has expressed some desire to see me in my office. If she calls [facility] office and makes an appointment, we will see her in my office. Otherwise, she will follow up with [facility]. Final Diagnoses: Intrauterine gestation at approximately 19 weeks, obstructive uropathy, possible py elonephritis now significantly improved. We will continue on antibiotics at home. MAXIMO/CORINA Voice ID: [id number] Report ID: [id number]
[2021-10-13] MEDS: ONDANSETRON 4 MG/2 ML VIAL IV PRN (09:55)
[2021-10-13] MEDS: CEFTRIAXONE 1,000 MG in NA CHLORIDE 0.9% 50 ML IVPB SCH ×2 (11:07→11:09)
[2021-10-13 16:36] VITALS: BP 119/67; TEMP 97.1
== END 2021-10-13 13:00 | disposition home or self-care (01) | DRG 817 ==
LOC: ER 18:49 → ERHOLD 10-09 00:09 → 2ND-WC 10-09 01:49 → OBSVTOIN 10-10 09:00
PROVIDERS: ADMIT Specialist; ATTEND Specialist
PROC: 0T768DZ Dilation of Right Ureter with Intraluminal Device, Via Natural or Artificial Opening Endoscopic (ICD-10-PCS; 2021-10-12)
PROC: BT1DZZZ Fluoroscopy of Right Kidney, Ureter and Bladder (ICD-10-PCS; principal; 2021-10-12 14:15)
DX: O23.02 Infections of kidney in pregnancy, second trimester (principal); N17.2 Acute kidney failure with medullary necrosis; O26.832 Pregnancy related renal disease, second trimester; N13.6 Pyonephrosis; Z3A.19 19 weeks gestation of pregnancy; Z20.822 Contact with and (suspected) exposure to COVID-19
CPT/HCPCS: 36415; 51600; 51610; 74183; 74400; 74430; 74450; 76705; 76770; 76815; 80048; 80053; 80076; 81001; 81003; 81015; 83605; 83690; 83735; 84145; 85025; 87040; 87086; 87088; 96361; 96365; 96367; 96374; 96375; 99284; 99285; A9577; G0378; J1940; J2270; J2370; J2405; J2704; J3010; J3475; J7030; J7120; U0003

== ENCOUNTER 2021-10-28 11:40 | Emergency (ER) | payer OTHER ==
--- OUTSIDE RECORDS SUMMARY | 2021-10-28 11:43 | XMS REPORT | Continuity of Care Document ---
:1995 Author Organization [facility] t Address [address] [place] [address] Care Team Providers Name Role Phone Mykel [...] Allergie 9-30 Clear s 00:00: Sosa 00 [facility] NO KNOWN Drug Active Univers ALLERGIE Class ity of S [facility] Social History Social Habit Start Date Stop Date Quantity Comments Source Exposure to Not sure [facility] SARS-CoV-2 (event) [facility] Alcohol intake 2021-07-25 2021-07-25 [facility] 00:00:00 00:00:00 Medical Branch Sex Assigned At [birth year] [facility] y [facility] 00:00:00 00:00:00 Medical Branch Smoking Status Start Date Stop Date Source Never smoker [facility] x[facility] Branch Medications Ordered Filled Start Stop Current Ordering Indication Dosage Frequency Signature Comments Components Source Medication Medication Date Date Medication? Clinician (SIG) Name Name ondansetron 2020-09 No 4mg 4 mg, Univ ers (ZOFRAN-ODT 09-24 Oral, ity of ) 09:45: 08:40 ONCE, 1 [place] disintegrat 00 :00 dose, On Medi cristina ing tablet [facility] 4 mg 07/25/21 at 0345, Routine acetaminoph 2020-09 No 1000mg 1,000 mg, Univers en 09-24 Oral, ity of (TYLENOL) 09:30: 08:39 [place]CE[place] tablet 00 :00 dose, On Medical 1,000 mg [place] [facility] 07/25/21 at 0330, Routine proCHLORper 2020-09 [...] mouth. ity o f CAFFEINE 00:46: 00:00 [place] (EXCEDRIN 17 :00 Medical MIGRAINE Branch ORAL) [...] Medical times Branch daily. clindamycin 2020- No [id number] Apply to Univers (CLEOCIN T) 04-22 area(s) ity of 1 % gel 00:00: 00:00 every [place] 00 :00 morning. Medical Branch tretinoin 2020- No [id number] Apply 2 Univers (RETIN-A) 04-22 times ity of 0.025 % 00:00: 00:00 [place] cream 00 :00 x 3-4 Medical weeks, Branch then q other HS x 3-4 weeks, then qHS Immunizations Ordered Immunization Filled Immunization Date Status Commen ts Source Name Name HPV 2011-04-12 Completed University of 00:00:00 [facility] HPV 2010-10-22 Completed University of 00:00:00 [facility] Varicella 2010-06-25 Completed [facility] (varivax)(chicken 00:00:00 [place] M edical pox) Branch Meningococcal 2010-06-25 Completed University of Vaccine 00:00:00 [facility] TDAP 2010-06-25 Completed University of 00:00:00 [facility] HEPATITIS A 2004-04-08 Completed University of 00:00:00 [facility] DTAP 2001-12-25 Completed University of 00:00:00 [facility] HEPATITIS A 2001-12-25 Completed University of 00:00:00 [facility] MMR 2001-12-25 Completed University of 00:00:00 [facility] Polio (IPV/OPV) 2001-12-25 Completed Universit y of 00:00:00 [facility] HEPATITIS A 2001-02-01 Completed University of 00:00:00 [facility] Hep B, Adol or Pedi 2001-02-01 Completed Unive rsity of Dosage 00:00:00 [facility] Varicella 2001-02-01 Completed University of (varivax)(chicken 00:00:00 [place] M edical pox) Branch Pneumococcal 7 2001-02-01 Completed University of Conjugate, PCV7 00:00:00 [facility] ical (Prevnar7) Branch DTAP 1999-01-12 Completed University of 00:00:00 [facility] HIB 3 Dose Schedule 1999-01-12 Completed Unive rsity of 00:00:00 [facility] MMR 1999-01-12 Completed University of 00:00:00 [facility] Polio (IPV/OPV) 1999-01-12 Completed Universit y of 00:00:00 [facility] HIB 3 Dose Schedule 1998-01-12 Completed Unive rsity of 00:00:00 [facility] DTAP 1995 Completed University of 00:00:00 [facility] HIB 3 Dose Schedule 1995 Completed Unive rsity of 00:00:00 [facility] Polio (IPV/OPV) 1995 Completed Universit y of 00:00:00 [facility] DTAP 1995 Completed University of 00:00:00 [facility] HIB 3 Dose Schedule 1995 Completed Unive rsity of 00:00:00 [facility] Hep B, Adol or Pedi 1995 Completed Unive rsity of Dosage 00:00:00 [facility] Polio (IPV/OPV) 1995 Completed Universit y of 00:00:00 [facility] Hep B, Adol or Pedi 1995 Completed Unive rsity of Dosage 00:00:00 [facility] Vital Signs Vital Name Observation Time Observation Value Comments Source Systolic blood 2021-07-25 09:00:00 125 mm[Hg] Univer sity of pressure [facility] Diastolic blood 2021-07-25 09:00:00 75 mm[Hg] Unive rsity of pressure [facility] Heart rate 2021-07-25 09:00:00 81 /min [facility] Oxygen saturation in 2021-07-25 09:00:00 100 /min [facility] Arterial blood by [facility] Pulse oximetry [place] Respiratory rate 2021-07-25 08:00:00 16 /min [facility] Body temperature 2021-07-25 06:44:00 37.06 Cassie [facility] Body height 2021-07-25 06:44:00 165.1 cm [facility] Body weight 2021-07-25 06:44:00 88.451 kg [facility] BMI 2021-07-25 06:44:00 32.45 kg/m2 [facility] Procedures Procedure Date / Time Performing Clinician Source Performed ABORH CONFIRMATION (LAB 2021-07-25 07:45:00 Nirav Rodriguez [facility] ONLY) [facility] HB ABO GROUPING 2021-07-25 07:22:00 Nirav Rodriguez [facility] COMP. METABOLIC PANEL 2021-07-25 07:20:00 Nirav Rodriguez [facility] ([id number]) [facility] TOTAL BETA HCG ASSAY 2021-07-25 07:20:00 Nirav Rodriguez [facility] CBC WITH DIFF 2021-07-25 07:20:00 Nirav Rodriguez [facility] URINALYSIS 2021-07-25 07:20:00 Nirav Rodriguez [facility] NOTICE OF PRIVACY 2021-07-25 06:34:06 Doctor Unassigned, No [facility] PRACTICES Name [facility] Branch CONSENT/REFUSAL FOR 2021-07-25 06:33:55 Doctor Unassigned, No [facility] DIAGNOSIS AND TREATMENT Name Medical [place] Encounters Start End Encounter Admission Attending Care Care Encounter Source Date/Time Date/Time Type Type Clinicians Facility Department ID 2021-09-08 2021-09-08 Emergency NARCISA Dong [id number] [facility] 08:49:00 11:03:00 [facility] [id number] [facility] 2021-09-08 2021-09-08 Emergency MARIANA DongCL [facility] [id number] [facility] 08:49:00 11:03:00 [facility] 2021-07-25 2021-07-25 Emergency [facility] [id number] Univers 00:39:00 03:30:00 Nirav Garcia OSCEOLA [id number] i ty of [place] [id number] [facility] [id number] [place] [id number] Branch 2021-07-25 2021-07-25 Emergency [facility] [id number] Univers 00:39:00 03:30:00 NIRAV berg [facility] Results Test Description Test Time Test [...] = CA) 8.9 mg/dL 8.0-10.5 N HCG [id number] 10:10:00 Test Item Value Reference Range Interpretation Comments HCG SERUM (test 64569.5 0 - 6 code = HCG) NOT > 6 S UGGESTIVE OF EARLY RISES TWO FOLD EVERY 2 DA YS; SUGGEST RECONFIRMING AF TER 2 DAYS. 150,000- 200,[address] TRIMESTER 10,000 - 50,000 2N D & 3RD TRIMESTERResult s in frank-Internati onal Units/mL UA RFLX MICR CULT IF [id number] 10:05:00 Test Item Value Reference Range Interpretation [...] Description: CLEAN CATCH DRUGS OF ABUSE SCREEN [id number] 09:52:00 Test Item Value Reference Range Interpretation [...] ed for non-medical pur poses. CBC W/AUTO [id number] 09:43:00 Test Item Value Reference Range Interpretation [...] NO = MDIFF) - US PREG 1ST [id number] 00:00:00 [facility] 1995 Sex: F Name: MAIA MEJIA [facility] : 1995 Age/S: 26 / F [address] [place] [address] Unit #: [id number] Loc: [place] [address] Phys: Darby Tapia [facility] Acct: [id number] Dis Date: Status: REG ER PHONE #: [phone] Exam Date: 09/08/2021 0957 FAX #: [phone] Reason: Pelvic Pain EXAMS: CPT CODE: [id number] US PREG 1ST TRIMTR [address]674 [place] OCEDURE INFORMATION: Exam: US First Trimester, Transabdominal [...] 1 Signed Report (CONTINUED) Name: MAIA MEJIA [facility] : 1995 Age/S: 26 / F [address] [place] [address] Blvd Unit #: [id number] Loc: [place] [address] Phys: Darby Tapia Acct: [id number] Dis Date: Status: REG ER PHONE #: [phone] Exam Date: 09/08/2021 0957 FAX #: [phone] Reason: Pelvic Pain EXAMS: CPT CODE: [id number] PREG 1ST TRIMTR 92025 <Continued> CC: Cisco Doyle MD; Darby Tapia Technologist: Andra Astorga Trnscb Date/Time:09/08/2021 (1012) [email or web address] Orig Print D/T: S: 09/08/2021 (101) Probe: PAGE 2 Signed Report- DUP AB/PEL/SC/[id number] 00:00:00 [facility] MAIA MEJIA Yolette : 1995 Sex: F Name: JACKIEWENNICOLE De La Vega [facility] : 1995 Age/S: 26 / F [address] [place] [address] Blvd Unit #: [id number] Loc: [place] [address] Phys: Darby Tapia Acct: [id number] Dis Date: Status: REG ER PHONE #: [phone] Exam Date: 09/08/2021 0957 FAX #: [phone] Reason: see US PREG 1st TRIMTR EXAMS: CPT CODE: [id number] DUP AB/PEL/SC/LTD 70104 [place] OCEDURE INFORMATION: Exam: US First Trimester, Transabdominal [...] Report (CONTINUED) Name: JACKIEANASTACIADONOVAN De La Vega [facility] : 1995 Age/S: 26 / F [address] [place] [address] Unit #: [id number] Loc: [place] [address] Phys: Darby Tapia Acct: [id number] Dis Date: Status: REG ER PHONE #: [phone] Exam Date: 09/08/2021 0957 FAX #: [phone] Reason: see US PREG 1st TRIMTR EXAMS: CPT CODE: [id number] DUP AB/PEL/SC/LTD 76029 <Continued> CC: Cisco Doyle MD; Darby Tapia Technologist: Andra Astorga Trnscb Date/Time:09/08/2021 (1013) [email or web address] Orig Print D/T: S: 09/08/2021 (1014) Probe: PAGE 2 Signed ReportABORH Confirmation (Lab Only)2021-07-25 08:58:17 Test Item Value Reference Range Interpretation Comments ABO & RH (test code B Positive Performe d at [facility] = 20) Laboratory [facility] [place] [address] Free: [phone] A No. [id number] [facility] Screen - ONCE [id number] 08:44:15 Test Item Value Reference Range Interpretation Comments ABO & RH (test code B Positive Performe d at [facility] = 20) Laboratory [facility] [address] [place], [place] [address]Toll Free: [phone] A No. [id number] IAT (test code = Negative Performed a t [facility] 1185) Laboratory [facility] [address] [place] [address] Free: [phone] A No. [id number] [facility] ([facility])2021-07-25 08:38:23 Test Item Value Reference Range Interpretation Comments BETA HCG (test See_Comment [Automated m essage] code = The system [employer] [id number]) generated this result transmit grecia reference range : Non- fe male and male patien ts: <5 mIU/mL. The reference range was not used to interpret this result as normal/abnormal . DEIDRA (test code Gestational Age ? ? = DEIDRA) ?Range (mIU/mL) 1-10 ?Weeks ?05-89934879-43 Weeks ?30498-93088995-33 Weeks ?8540-43026367-01 Weeks ?6697-481919 Biotin has been reported to cause a negative bias, interpret results relative to patient's use of biotin. [facility]. METABOLIC PANEL (10750)2021-07-25 07:44:50 Test Item Value Reference Range Interpretation Comments NA (test code = 136 mmol/L 135-145 7777840334) K (test code = 3.9 mmol/L 3.5-5.0 4497599006) CL (test code = 104 mmol/L 98-108 2632000400) CO2 TOTAL (test code = 24 mmol/L 23-31 6026533418) AGAP (test code = 2-16 9536596315) BUN (test code = 7 mg/dL 7-23 8985946140) GLUCOSE (test code = 115 mg/dL 70-110 H 0733934014) CREATININE (test code = 0.58 mg/dL 0.50-1.04 8085769510) TOTAL BILI (test code = 0.3 mg/dL 0.1-1.2 6397959796) CALCIUM (test code = 9.6 mg/dL 8.6-10.6 0094987239) T PROTEIN (test code = 6.9 g/dL 6.3-8.2 1326878977) ALBUMIN (test code = 4.1 g/dL 3.5-5.0 4563486227) ALK PHOS (test code = 75 U/L 34-122 2617255433) ALTv (test code = 13 U/L 5-35 2-6) AST(SGOT) (test code = 19 U/L 13-40 6421001009) eGFR (test code = mL/min/1.73m2 1983628683) DEIDRA (test code = DEIDRA) Association of [...] tests). Lab Interpretation Abnormal (test code = 02491-2) [facility] WITH [id number] 07:31:47 Test Item Value Reference Range Interpretation [...] RDW-SD (test code = 41.1 fL 39.0-49.9 34844-8) RDW-CV (test code = 12.8 % 12.0-15.5 788-0) PLT (test code = See_Comment [Automated 777-3) message] The sy stem which generated this result transmitted reference range : 166 - 358 10*3/ ?L. The reference r nurys was not used to interpret this result as normal/abnormal . MPV (test code = 11.2 fL 9.5-12.9 22642-1) NRBC/100 WBC (test See_Comment [Automat ed code = 2094008860) message] The system which generated this result transmitted reference range : 0.0 - 10.0 /100 WBCs. The refer ence range was not u sed to interpret th is result as normal/abnormal . NRBC x10^3 (test code <0.01 See_Comment [Auto mated = 5901457418) message] The s ystem which generated this result transmitted reference range : 10*3/?L. The reference range was not used to interpret this result as normal/abnormal . GRAN MAT (NEUT) % 76.4 % (test code = 770-8) IMM GRAN % (test code 0.40 % = 6173281352) LYMPH % (test code = 13.3 % 736-9) MONO % (test code = 7.9 % 5905-5) EOS % (test code = 1.4 % 713-8) BASO % (test code = 0.6 % 706-2) GRAN MAT x10^3(ANC) 7.57 10*3/uL 1.88-7.09 H (test code = 9826902880) IMM GRAN x10^3 (test 0.04 10*3/uL 0.00-0.06 code = 9245646864) LYMPH x10^3 (test code 1.32 10*3/uL 1.32-3.29 = 731-0) MONO x10^3 (test code 0.78 10*3/uL 0.33-0.92 = 742-7) EOS x10^3 (test code = 0.14 10*3/uL 0.03-0.39 711-2) BASO x10^3 (test code 0.06 10*3/uL 0.01-0.07 = 704-7) Lab Interpretation Abnormal (test code = 67242-5) [facility]"
[2021-10-28 13:05] LABS: Urine Blood 3+ (Negative); Urine Glucose Negative (Negative); Urine Protein 3+ (Negative); Urine Specific Gravity 1.025 (1.005-1.030)
[2021-10-28 13:21] LABS: Lymphocytes % 9.2 % (15.3-44.8); MPV 8.8 fL (7.6-11.3); RBC Red Blood Cell Count 3.74 M/uL (3.86-4.86)
[2021-10-28 13:35] LABS: BUN Blood Urea Nitrogen 8 mg/dL (7-18); Bicarbonate 23 mmol/L (21-32); Glucose Level 104 mg/dL (74-106); Potassium 3.9 mmol/L (3.5-5.1); Sodium Level 138 mmol/L (136-145)
[2021-10-28] MEDS ORDERED: MORPHINE 4 MG/ML SYR ONE (13:43)
[2021-10-28] MEDS ORDERED: ONDANSETRON 4 MG/2 ML VIAL ONE (13:43)
[2021-10-28] MEDS ORDERED: NA CHLORIDE 0.9% 500 ML ONE (13:43)
--- NOTE | 2021-10-28 14:01 | RAD REPORT ---
EXAM DESCRIPTION: US - Renal Ultrasound-Limited - 10/28/2021 1:48 pm CLINICAL HISTORY: Right flank pain COMPARISON: Abdomen Exam Limited dated 10/11/2021; Urethrocystogrphy Retrograde dated 10/12/2021 FINDINGS: The right kidney is normal in size, shape and echotexture. The right kidney measures 11.3 cm. Mild right-side hydronephrosis. A ureteral stent is seen in the co llecting system. The left kidney was not imaged . Bladder is under distended. IMPRESSION: Mild right-sided hydronephrosis with ureteral stent in place.
--- NOTE | 2021-10-28 17:39 | ER ---
Nurse's Notes [facility] Name: Celia Thakkar Age: 26 yrs Sex: Female : 1995 Arrival Date: 10/28/2021 Time: 11:41 Bed 30 Private MD: Adam Sharpe Diagnosis: , 22-week gestation. Right flank pain, right hydronephrosis, right renal stent (placed on 10/07/2021) Presentation: 10/28 12:06 Chief complaint: Patient states: on the . i had a stent, a ureter stent in. it was tw2 causing me some issues. but since Monday i am in really bad pain and my low back is hurting. i just cant take the pain. i tried calling the surgeon and he is out this week. i am nauseous now. the pain is on my right side. i am 22 weeks . + mvmt. Coronavirus screen: At this time, the client does not indicate any symptoms associated with coronavirus-19. Ebola Screen: Patient denies travel to an Ebola-affected area in the 21 days before illness onset. Initial Sepsis Screen: Does the patient meet any 2 criteria? HR > 90 bpm. No. Patient's initial sepsis screen is negative. Does the patient have a suspected source of infection? Yes: Dysuria/Frequency/Urgency/UTI. Risk Assessment: Do you want to hurt yourself or someone else? Patient reports no desire to harm self or others. Onset of symptoms was October 28, 2021. 12:06 Method Of Arrival: Ambulatory tw2 12:06 Acuity: ASCENCION 3 tw2 Triage Assessment: 12:13 General: Appears uncomfortable, Behavior is calm, cooperative, appropriate for age. tw2 Pain: Complains of pain in abdomen Pain radiates to back. 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 - Social history:: Smoking status: Patient denies any tobacco usage or history of. Screenin:57 Abuse screen: Denies threats or abuse. Nutritional screening: No deficits noted. lr4 Tuberculosis screening: No symptoms or risk factors identified. Fall Risk None identified. Assessment: 12:55 General: Appears in no apparent distress. uncomfortable, well developed, Behavior is lr4 calm, cooperative. Pain: Complains of pain in back and abdomen Pain currently is 9 out of 10 on a pain scale. Neuro: No deficits noted. Cardiovascular: No deficits noted. Respiratory: No deficits noted. GI: Reports cramping, 22 wks . : Reports burning with urination, cramping, pain in right flank(s), since 2 days ago urgency, urinary frequency. 14:48 Reassessment: Patient states feeling better. Patient states symptoms have improved. lr4 19:25 General: Report given to Ling GARCIA at [facility] L\T\D triage. lr4 19:28 Reassessment: Patient states feeling better. Patient states symptoms have improved. lr4 20:07 General: Pt departed ed via stretcher with [facility] with all personal lr4 effects, pt in nad, vss, resp even an unlabored.. Vital Signs: 12:06 BP 123 / 79; Pulse 107; Resp 17; Temp 99.3(TE); Pulse Ox 100% on R/A; Weight 90.26 kg tw2 (R); Height 5 ft. 5 in. (165.10 cm); Pain 9/10; 14:48 BP 106 / 76; Pulse 81; Resp 18; Pulse Ox 100% ; Pain 4/10; lr4 18:13 BP 97 / 70; Pulse 84; Resp 16; Pulse Ox 98% on R/A; ab2 19:27 BP 107 / 71; Pulse 85; Resp 18; Pulse Ox 98% ; lr4 19:50 BP 111 / 69; Pulse 97; Resp 20; Pulse Ox 99% ; lr4 12:06 Body Mass Index 33.11 (90.26 kg, 165.10 cm) tw2 ED Course: 11:41 Patient arrived in ED. as 11:41 Adam Sharpe MD is Private Physician. as 12:11 Triage completed. tw2 12:13 Arm band placed on. tw2 12:28 Onur Saucedo MD is Attending Physician. kdr 12:54 Lotus Livingston, RN is Primary Nurse. lr4 12:57 Patient has correct armband on for positive identification. Placed in gown. Bed in low lr4 position. Side rails up X 1. Door closed. Lights dimmed. Verbal reassurance given. 13:48 Renal Ultrasound-Limited In Process Unspecified. EDMS 14:48 No provider procedures requiring assistance completed. lr4 Administered Medications: 13:55 Drug: morphine 4 mg Route: IVP; Site: right antecubital; lr4 14:11 Follow up: Response: No adverse reaction; Pain is decreased; RASS: Drowsy (-1) lr4 14:55 Follow up: Response: Pain is decreased lr4 13:55 Drug: Zofran (Ondansetron) 4 mg Route: IVP; Site: right antecubital; lr4 14:11 Follow up: Response: No adverse reaction; Nausea is decreased lr4 13:55 Drug: NS 0.9% 500 ml Route: IV; Rate: bolus; Site: right antecubital; lr4 14:11 Follow up: IV Status: Infusion continued lr4 14:55 Follow up: IV Status: Completed infusion; IV Intake: 500ml lr4 18:36 Drug: fentaNYL (PF) 25 mcg Route: IVP; Site: right antecubital; lr4 19:50 Follow up: Response: No adverse reaction; Pain is decreased lr4 Intake: 14:55 IV: 500ml; Total: 500ml. lr4 Outcome: 12:57 Condition: stable lr4 17:39 ER care complete, transfer ordered by . kdr 20:08 Patient left the ED. lr4 Signatures: Dispatcher [employer] EDMS Onur Saucedo MD MD kdr Tari Loco Tara, RN RN tw2 [place] 2 Lotus Livingston, RADHA RN lr4 Corrections: (The following items were deleted from the chart) 12:14 12:06 Chief complaint: Patient states: on the . i had a stent, a ureter stent in. it tw2 was causing me some issues. but since Monday i am in really bad pain and my low back is hurting. i just cant take the pain. i tried calling the surgeon and he is out this week. i am nauseous now. on my right side tw2
--- NOTE | 2021-10-28 17:40 | EDPHYS ---
Physician Documentation [facility] Name: Celia Thakkar Age: 26 yrs Sex: Female : 1995 Arrival Date: 10/28/2021 Time: 11:41 Bed 30 Private MD: Adam Sharpe ED Physician Onur Saucedo HPI: 10/28 18:39 This 26 yrs old Female presents to ER via Ambulatory with complaints of Low Back Pain, kdr Pelvic Pain. 18:39 The patient presents with pain that is acute, with no known mechanism of injury, and kdr decreased range of motion, and swelling, and tenderness. The symptoms are located in the low back, right mid back. The pain does not radiate. The problem was sustained The patient began having right flank pain early this month around the second or third. At that time she was evaluated found to have a possible obstruction on the right ureter. On about the third of this month a stent was placed. This was accomplished by Dr. Sharpe here locally. Subsequently the patient had a short admission for 4 to 5 days for intractable pain. Subsequently she was discharged to follow-up with her [facility]ILING TUB OPERATOR in [place]. She called her BOILING TUB OPERATOR/Dr. Hogue earlier today who gave her references to to urologist to follow-up with. She attempted to call them since Dr. Sharpe was not in town and would not be for a period of a week and a half or more, however she was unable to secure an appointment in the near future. Subsequently she appeared here for care given the significant nature 8-10 out of 10 pain she continued to experience. She denies any other associated symptoms is otherwise been in good health. Patient is G1, P0. Onset: The symptoms/episode began/occurred gradually, just prior to arrival, this morning. Modifying factors: The patient symptoms are alleviated by nothing, the patient symptoms are aggravated by any movement. Associated signs and symptoms: The patient has no apparent associated signs or symptoms. Severity of symptoms: At their worst the symptoms were moderate, severe, incapacitating, in the emergency department the symptoms are unchanged. The patient has not experienced similar symptoms in the past. The patient has been recently seen by a physician:. BOILING TUB OPERATOR: 14:48 1, Living 0, LMP 05/28/2021 lr4 Historical: - Allergies: 12:11 No Known Allergies; tw2 - Home Meds: 12:11 Bactrim DS 800-160 mg Oral tab 1 tab once daily [Active]; tw2 - PMHx: 12:14 None; tw2 - PSHx: 12:11 ureter stent; tw2 - Immunization history:: Client reports having NOT received the Covid vaccine. - Social history:: Smoking status: Patient denies any tobacco usage or history of. ROS: 18:39 Constitutional: Negative for fever, chills, and weight loss, Eyes: Negative for injury, kdr pain, redness, and discharge, ENT: Negative for injury, pain, and discharge, Neck: Negative for injury, pain, and swelling, Cardiovascular: Negative for chest pain, palpitations, and edema, Respiratory: Negative for shortness of breath, cough, wheezing, and pleuritic chest pain, : Negative for injury, bleeding, discharge, and swelling, MS/Extremity: Negative for injury and deformity, Skin: Negative for injury, rash, and discoloration, Neuro: Negative for headache, weakness, numbness, tingling, and seizure activity. Psych: Negative for depression, anxiety, suicide ideation, homicidal ideation, and hallucinations, Allergy/Immunology: Negative for hives, rash, and allergies, Endocrine: Negative for neck swelling, polydipsia, polyuria, polyphagia, and marked weight changes, Hematologic/Lymphatic: Negative for swollen nodes, abnormal bleeding, and unusual bruising. 18:39 Abdomen/GI: Positive for abdominal pain, nausea, Negative for Flank pain. Exam: 18:39 Constitutional: This is a well developed, well nourished patient who is awake, alert, kdr and in no acute distress. Head/Face: Normocephalic, atraumatic. Eyes: Pupils equal round and reactive to light, extra-ocular motions intact. Lids and lashes normal. Conjunctiva and sclera are non-icteric and not injected. Cornea within normal limits. Periorbital areas with no swelling, redness, or edema. Neck: Trachea midline, no thyromegaly or masses palpated, and no cervical lymphadenopathy. Supple, full range of motion without nuchal rigidity, or vertebral point tenderness. No Meningismus. Chest/axilla: Normal chest wall appearance and motion. Nontender with no deformity. No lesions are appreciated. Cardiovascular: Regular rate and rhythm with a normal S1 and S2. No gallops, murmurs, or rubs. Normal PMI, no JVD. No pulse deficits. Respiratory: Lungs have equal breath sounds bilaterally, clear to auscultation and percussion. No rales, rhonchi or wheezes noted. No increased work of breathing, no retractions or nasal flaring. Abdomen/GI: Soft, non-tender, with normal bowel sounds. No distension or tympany. No guarding or rebound. No evidence of tenderness throughout. Skin: Warm, dry with normal turgor. Normal color with no rashes, no lesions, and no evidence of cellulitis. MS/ Extremity: Pulses equal, no cyanosis. Neurovascular intact. Full, normal range of motion. Neuro: Awake and alert, GCS 15, oriented to person, place, time, and situation. Cranial nerves II-XII grossly intact. Motor strength 5/5 in all extremities. Sensory grossly intact. Cerebellar exam normal. Normal gait. Psych: Awake, alert, with orientation to person, place and time. Behavior, mood, and affect are within normal limits. 18:39 Abdomen/GI: Inspection: gravid appearance, Bowel sounds: active, Palpation: soft, moderate abdominal tenderness. 18:39 Back: pain, that is mild, that is moderate, ROM is normal, CVA tenderness, that is mild, is noted on the right. Vital Signs: 12:06 BP 123 / 79; Pulse 107; Resp 17; Temp 99.3(TE); Pulse Ox 100% on R/A; Weight 90.26 kg tw2 (R); Height 5 ft. 5 in. (165.10 cm); Pain 9/10; 14:48 BP 106 / 76; Pulse 81; Resp 18; Pulse Ox 100% ; Pain 4/10; lr4 18:13 BP 97 / 70; Pulse 84; Resp 16; Pulse Ox 98% on R/A; ab2 19:27 BP 107 / 71; Pulse 85; Resp 18; Pulse Ox 98% ; lr4 19:50 BP 111 / 69; Pulse 97; Resp 20; Pulse Ox 99% ; lr4 12:06 Body Mass Index 33.11 (90.26 kg, 165.10 cm) tw2 MDM: 17:39 Patient medically screened. kdr 18:39 Data reviewed: vital signs, nurses notes, lab test result(s), radiologic studies. kdr Counseling: I had a detailed discussion with the patient and/or guardian regarding: the historical points, exam findings, and any diagnostic results supporting the discharge/admit diagnosis, lab results, radiology results, the need to transfer to another facility. ED course: I discussed the patient's presentation with Dr. Hogue her BOILING TUB OPERATOR and Dr. Sharpe to place a stent. Dr. Hogue had referred her to urology. She was unable to secure an appointment with either the contacts she had been given. Dr. Sharpe was out of town for the next 7 to 10 days and would not be available.. 10/28 12:58 Order name: CBC with Diff; Complete Time: 15:00 kdr 10/28 12:58 Order name: Chem 7; Complete Time: 15:00 kdr 10/28 12:58 Order name: Urine Culture kdr 10/28 13:04 Order name: Urine Dipstick-Ancillary; Complete Time: 15:00 EDMS 10/28 17:51 Order name: SARS-COV-2 RT PCR (Document "Date of Onset" if Symptomatic) iw 10/28 12:58 Order name: Urine Dipstick-Ancillary (obtain specimen); Complete Time: 16:04 kdr 10/28 13:01 Order name: Renal Ultrasound-Limited; Complete Time: 15:00 EDMS Administered Medications: 13:55 Drug: morphine 4 mg Route: IVP; Site: right antecubital; lr4 14:11 Follow up: Response: No adverse reaction; Pain is decreased; RASS: Drowsy (-1) lr4 14:55 Follow up: Response: Pain is decreased lr4 13:55 Drug: Zofran (Ondansetron) 4 mg Route: IVP; Site: right antecubital; lr4 14:11 Follow up: Response: No adverse reaction; Nausea is decreased lr4 13:55 Drug: NS 0.9% 500 ml Route: IV; Rate: bolus; Site: right antecubital; lr4 14:11 Follow up: IV Status: Infusion continued lr4 14:55 Follow up: IV Status: Completed infusion; IV Intake: 500ml lr4 18:36 Drug: fentaNYL (PF) 25 mcg Route: IVP; Site: right antecubital; lr4 19:50 Follow up: Response: No adverse reaction; Pain is decreased lr4 Disposition Summary: 10/28/21 17:39 Transfer Ordered Transfer Location: [facility] kdr Reason: Higher level of care kdr Condition: Stable kdr Problem: an acute exacerbation kdr Symptoms: have improved kdr Accepting Physician: [facility] high risk program: Dr. Solares(10/28/21 20:08) lr4 Diagnosis - , 22-week gestation. Right flank pain, right hydronephrosis, right renal kdr stent (placed on 10/07/2021) Forms: - Medication Reconciliation Form kdr - SBAR form kdr Signatures: Dispatcher [employer] EDMS Onur Saucedo MD MD kdr Jen Jeffers RN RN tw2 [place]2 Lotus Livingston RN RN lr4 Corrections: (The following items were deleted from the chart) 13:01 12:58 Abdomen Limited+US.RAD.BRZ ordered. EDNJ EDMS 18:38 17:39 [facility] high risk program kdr kdr 20:08 18:38 [facility] high risk program: Dr. Solares kdr lr4
[2021-10-28] MEDS ORDERED: FENTANYL CITR 100 MCG/2 ML ONE (18:37)
[2021-10-28 20:14] VITALS: TEMP 99.3
[2021-10-28 20:19] VITALS: BP 111/69; O2SAT 99
== END 2021-10-28 20:08 | disposition short-term general hospital (02) ==
LOC: ER 11:40
DX: O99.891 Other specified diseases and conditions complicating pregnancy (principal); N13.30 Unspecified hydronephrosis; Z3A.22 22 weeks gestation of pregnancy; Z96.0 Presence of urogenital implants; Z20.822 Contact with and (suspected) exposure to COVID-19
CPT/HCPCS: 87088; 85025; 87086; 80048; 36415; 81003; 76775; 96375; 96374; 99283; U0003; J3010; J7040; J2405

== ENCOUNTER 2022-01-13 09:44 | Emergency (ER) | payer OTHER ==
--- OUTSIDE RECORDS SUMMARY | 2022-01-13 09:47 | XMS REPORT | Continuity of Care Document ---
:1995 Author Organization [facility] t Address [address] [place] [address] Care Team Providers Name Role Phone Mykel MEYER Primary Care Physician Doctor Unassigned, Name Attending Clinician Unavailable SHIMON Attending Clinician Unavailable MD Zhen VALDES Attending Clinician Unavailable SHIMON Attending Clinician Unavailable Ced KIM Attending Clinician Unavailable Vivek Attending Clinician Unavailable Jennifer GRIFFITH, S Attending Clinician Jose RODRIGUEZ Attending Clinician Unavailable LUCIO Admitting Clinician Unavailable Ced KIM Admitting Clinician Unavailable Physician, Primary or Family Admitting Clinician Unavailabl e Payers Payer Name Policy Type Policy Number Effective Date Expiration Date S ource Problems Condition Condition Condition Status Onset Resolution Last Treating Co mments Source Name Details Category Date Date Treatment Clinician Date 21 weeks 21 weeks Disease Active Unive rs gestation gestation 2-25 ity of of of 00:00: [place] 00 [facility] Nephrolith Nephrolith Disease Active U nivers iasis iasis 2-25 ity of 00:00: [place] 00 [facility] Pain due Pain due Disease Active Unive rs to to 2-25 ity of ureteral ureteral 00:00: [place] stent stent 00 [facility] Placenta Placenta Disease Active Unive rs previa in previa in 2-25 ity of second second 00:00: [place] trimester trimester 00 [facility] Obesity Obesity Disease Active Univers (BMI (BMI 2-24 ity of 30-39.9) 30-39.9) 00:00: [place] 00 [facility] Left Left Disease Active Univers radial radial 4-10 ity of head head 00:00: [place] fracture, fracture, 00 [facility] closed, closed, Branch initial initial encounter encounter Allergies, Adverse Reactions, Alerts Allergy Allergy Status Severity Reaction(s) Onset Inactive Treating Comm ents Source Name Type Date Date Clinician No Known DA Active U [facility] Allergie 9-30 Clear s 00:00: [place] 00 [facility] NO KNOWN Drug Active Univers ALLERGIE Class ity of S [facility] [place] [facility] Social History Social Habit Start Date Stop Date Quantity Comments Source ASSERTION 2021-06-17 [facility] [place] [facility] 00:00:00 [facility] Exposure to Not sure [facility] [place] [facility] SARS-CoV-2 (event) [facility] Alcohol intake 2021-10-29 2021-10-29 [facility] [place] [facility] 00:00:00 00:00:00 [facility] Tobacco Comment 2021-10-29 2021-10-29 n/a [facility] [place] 00:00:00 00:00:00 [facility] Tobacco use and 2014-07-04 2014-07-04 Never used [facility] exposure 00:00:00 00:00:00 [facility] Sex Assigned At [birth year] [facility] 00:00:00 00:00:00 [facility] Smoking Status Start Date Stop Date Source Never smoker [facility] Medications Ordered Filled Start Stop Current Ordering Indication Dosage Frequency Signature Comments Components Source Medication Medication Date Date Medication? Clinician (SIG) Name Name oxybutynin 2021- Yes [id number] 5mg Take 1 Univers chloride 5 10-30 tablet by ity of mg tablet 00:00: 04:59 [place] 3 [place] 00 :[place] (three) Medical times Branch daily for 60 days. ondansetron 2020-09 No 4mg 4 mg, Univ ers (ZOFRAN-ODT 09-24 Oral, ity of ) 09:45: 08:40 ONCE, 1 [place] disintegrat 00 :00 dose, On Medi cristina ing tablet [place] Branch 4 mg 07/25/21 at 0345, Routine acetaminoph 2020-09 No 1000mg 1,000 mg, Univers en 09-24 Oral, ity of (TYLENOL) 09:30: 08:39 ONCE, 1 [place] tablet 00 :00 dose, On Medical 1,000 mg [facility] 07/25/21 at 0330, Routine proCHLORper 2020-09 No 10mg Take 10 mg Univers azine 09-24 by mouth ity of (COMPAZINE) 00:46: 00[place]00 [place] 6 [place] 10 mg 38 :00 (six) Medical tablet hours as Branch needed. ketorolac 2020-09 No 10mg Take 10 mg U karen (TORADOL) 09-24 by mouth. ity of 10 [...] 500mg Take 1 Unive rs 500 mg 0-04 07-25 tablet by ity of tablet 00:00: 00:00 mouth 2 [place] 00 :00 (two) Medical times [place] daily with meals. cyclobenzap 2016-09- No 5mg Take 1 Uni vers rine 5 mg 07-25 tablet by ity of tablet 00:00: 00:00 mouth 3 [place] 00 :00 (three) Medical times [place] daily. clindamycin 2020- No [id number] Apply to Univers (CLEOCIN T) 04-22 area(s) ity of 1 % gel 00:00: 00:00 every [place] 00 :00 morning. [facility] Branch tretinoin 2020- No [id number] Apply 2 Univers (RETIN-A) 04-22 times ity of 0.025 % 00:00: 00:00 weekly [place] cream 00 :00 x 3-4 Medical weeks, Branch then q other HS x 3-4 weeks, then qHS Immunizations Ordered Immunization Filled Immunization Date Status Commen ts Source Name Name HPV 2011-04-12 Completed University of 00:00:00 [facility] [place] [facility] HPV 2011-04-12 Completed University of 00:00:00 [facility] [place] [facility] HPV 2010-10-22 Completed University of 00:00:00 [facility] [place] [facility] HPV 2010-10-22 Completed University of 00:00:00 [facility] [place] [facility] Meningococcal 2010-06-25 Completed University of Vaccine 00:00:00 [facility] [place] [facility] TDAP 2010-06-25 Completed University of 00:00:00 [facility] [place] [facility] Varicella 2010-06-25 Completed University of (varivax)(chicken 00:00:00 [place] M edical pox) [place] Meningococcal 2010-06-25 Completed University of Vaccine 00:00:00 [facility] [place] [facility] TDAP 2010-06-25 Completed University of 00:00:00 [facility] [place] [facility] Varicella 2010-06-25 Completed University of (varivax)(chicken 00:00:00 [place] M edical pox) [place] HEPATITIS A 2004-04-08 Completed University of 00:00:00 [facility] [place] [facility] HEPATITIS A 2004-04-08 Completed University of 00:00:00 [facility] [place] [facility] HEPATITIS A 2001-12-25 Completed University of 00:00:00 [facility] [place] [facility] MMR 2001-12-25 Completed University of 00:00:00 [facility] [place] [facility] Polio (IPV/OPV) 2001-12-25 Completed Universit y of 00:00:00 [facility] [place] [facility] DTAP 2001-12-25 Completed University of 00:00:00 [facility] [place] [facility] HEPATITIS A 2001-12-25 Completed University of 00:00:00 [facility] [place] [facility] MMR 2001-12-25 Completed University of 00:00:00 [facility] [place] [facility] Polio (IPV/OPV) 2001-12-25 Completed Universit y of 00:00:00 [facility] [place] [facility] DTAP 2001-12-25 Completed University of 00:00:00 [facility] [place] [facility] HEPATITIS A 2001-02-01 Completed University of 00:00:00 [facility] [place] [facility] Hep B, Adol or Pedi 2001-02-01 Completed Unive rsity of Dosage 00:00:00 [facility] [place] [facility] Varicella 2001-02-01 Completed University of (varivax)(chicken 00:00:00 [place] M edical pox) Branch Pneumococcal 7 2001-02-01 Completed University of Conjugate, PCV7 00:00:00 [place] Med ical (Prevnar7) Branch HEPATITIS A 2001-02-01 Completed University of 00:00:00 [facility] [place] [facility] Hep B, Adol or Pedi 2001-02-01 Completed Unive rsity of Dosage 00:00:00 [facility] [place] [facility] Varicella 2001-02-01 Completed University of (varivax)(chicken 00:00:00 [place] M edical pox) Branch Pneumococcal 7 2001-02-01 Completed University of Conjugate, PCV7 00:00:00 [place] Med ical (Prevnar7) Branch HIB 3 Dose Schedule 1999-01-12 Completed Unive rsity of 00:00:00 [facility] [place] [facility] MMR 1999-01-12 Completed University of 00:00:00 [facility] [place] [facility] Polio (IPV/OPV) 1999-01-12 Completed Universit y of 00:00:00 [facility] [place] [facility] DTAP 1999-01-12 Completed University of 00:00:00 [facility] [place] [facility] HIB 3 Dose Schedule 1999-01-12 Completed Unive rsity of 00:00:00 [facility] [place] [facility] MMR 1999-01-12 Completed University of 00:00:00 [facility] [place] [facility] Polio (IPV/OPV) 1999-01-12 Completed Universit y of 00:00:00 [facility] [place] [facility] DTAP 1999-01-12 Completed University of 00:00:00 [facility] [place] [facility] HIB 3 Dose Schedule 1998-01-12 Completed Unive rsity of 00:00:00 [facility] HIB 3 Dose Schedule 1998-01-12 Completed Unive rsity of 00:00:00 [place] [facility] Polio (IPV/OPV) 1997 Completed Universit y of 00:00:00 [place] [facility] DTAP 1997 Completed University of 00:00:00 [place] [facility] HIB 3 Dose Schedule 1997 Completed Unive rsity of 00:00:00 [place] [facility] Polio (IPV/OPV) 1995 Completed Universit y of 00:00:00 [place] [facility] DTAP 1997 Completed University of 00:00:00 [facility] HIB 3 Dose Schedule 1997 Completed Unive rsity of 00:00:00 [facility] Hep B, Adol or Pedi 1997 Completed Unive rsity of Dosage 00:00:00 [facility] [place] [facility] Polio (IPV/OPV) 1995 Completed Universit y of 00:00:00 [place] [facility] DTAP 1997 Completed University of 00:00:00 [place] [facility] HIB 3 Dose Schedule 1997 Completed Unive rsity of 00:00:00 [place] [facility] Hep B, Adol or Pedi 1997 Completed Unive rsity of Dosage 00:00:00 [facility] [place] [facility] Polio (IPV/OPV) 1997 Completed Universit y of 00:00:00 [facility] DTAP 1997 Completed University of 00:00:00 [place] [facility] HIB 3 Dose Schedule 1997 Completed Unive rsity of 00:00:00 [place] [facility] Hep B, Adol or Pedi 1997 Completed Unive rsity of Dosage 00:00:00 [place] [facility] Hep B, Adol or Pedi 1997 Completed Unive rsity of Dosage 00:00:00 [facility] [place] [facility] Vital Signs Vital Name Observation Time Observation Value Comments Source Systolic blood 2021-07-25 09:00:00 125 mm[Hg] Univer sity of pressure [facility] [place] [facility] Diastolic blood 2021-07-25 09:00:00 75 mm[Hg] Unive rsity of pressure [facility] [place] [facility] Heart rate 2021-07-25 09:00:00 81 /min [facility] Oxygen saturation in 2021-07-25 09:00:00 100 /min [facility] Arterial blood by [facility] Pulse oximetry [place] Respiratory rate 2021-07-25 08:00:00 16 /min [facility] Body temperature 2021-07-25 06:44:00 37.06 Cassie [facility] Body height 2021-07-25 06:44:00 165.1 cm [facility] Body weight 2021-07-25 06:44:00 88.451 kg [facility] BMI 2021-07-25 06:44:00 32.45 kg/m2 [facility] Procedures Procedure Date / Time Performing Clinician Source Performed EXTERNAL PROVIDER 2021-11-08 06:01:00 Doctor Jayne, No [facility] RECORDS Name [facility] ABORH CONFIRMATION (LAB 2021-07-25 07:45:00 Nirav Rodriguez [facility] ONLY) Medical [place] HB ABO GROUPING 2021-07-25 07:22:00 Nirav Rodriguez [facility] COMP. METABOLIC PANEL 2021-07-25 07:20:00 Nirav Rodriguez [facility] ([id number]) [facility] TOTAL BETA HCG ASSAY 2021-07-25 07:20:00 Nirav Rodriguez [facility] CBC WITH DIFF 2021-07-25 07:20:00 Nirav Rodriguez [facility] URINALYSIS 2021-07-25 07:20:00 Nirav Rodriguez [facility] NOTICE OF PRIVACY 2021-07-25 06:34:06 Doctor Unassigned, No [facility] PRACTICES Name [facility] CONSENT/REFUSAL FOR 2021-07-25 06:33:55 Doctor Jayne, No [facility] DIAGNOSIS AND TREATMENT Name [facility] Encounters Start End Encounter Admission Attending Care Care Encounter Source Date/Time Date/Time Type Type Clinicians Facility Department ID 2021-11-08 2021-11-08 Orders Doctor [place] [id number] [facility] [place] [facility] 00:00:00 00:00:00 [id number] Daniel as [id number] [facility] cristina 009 Branch 2021-11-07 2021-11-08 Outpatient HIGH, [facility] 678 [id number] [place] 00:00:00 00:00:00 AMITKUMAR [address] 2021-11-07 2021-11-07 Outpatient HIGH, [facility] [id number] [place] 00:00:00 00:00:00 STEPHEN [address] 2021-11-07 2021-11-07 Outpatient HIGH, [facility] [id number] [place] 00:00:00 00:00:00 STEPHEN 461 Method i 2021-11-07 2021-11-07 Outpatient HIGH, [facility] [id number] [place] 00:00:00 00:00:00 STEPHEN [address] 2021-11-07 2021-11-07 Outpatient HIGH, [facility] [id number] [place] 00:00:00 00:00:00 STEPHEN [address] 2021-11-07 2021-11-07 Outpatient HIGH, [facility] [id number] [place] 00:00:00 00:00:00 STEPHEN [address] 2021-11-07 2021-11-07 Outpatient HIGH, [facility] [id number] [place] 00:00:00 00:00:00 STEPHEN [address] 2021-11-07 2021-11-07 Outpatient HIGH, [facility] [id number] [place] 00:00:00 00:00:00 SETPHEN 449 Method i 2021-10-28 2021-10-30 [facility] TISH [id number] [facility] [place] [facility] 21:34:00 12:25:00 HORACIO berg [facility] 2021-09-08 2021-09-08 Emergency EM Doyle, HCACL MARY [id number] [facility] 08:49:00 11:03:00 Cisco [id number] [facility] 2021-09-08 2021-09-08 Emergency EM Doyle, HCACL HCACL [id number] [facility] 08:49:00 11:03:00 Cisco 34 [facility] 2021-07-25 2021-07-25 Emergency [facility] [id number] Univers 00:39:00 03:30:00 Nirav S LAURYN [id number] i [facility] [id number] [facility] [id number] [address] 2021-07-25 2021-07-25 Emergency X JENNIFER [facility] ERT [id number] Univers 00:39:00 03:30:00 NIRAV berg [facility] Results Test Description Test Time Test Comments Results Result Comments Source SARS-CoV-2 (COVID-19) RNA [Presence] in Respiratory sp ecimen by 2021-11-08 00:14:57 FREDDY with probe detection Test Item Value Reference Range Interpretation Comme nts SARS coronavirus RNA [Presence] in Isolate by FREDDY with probe Not de tected detection (test code = 48161-3) Whether patient is employed in a healthcare setting (test code = Un known 52543-7) Whether the patient has symptoms related to condition of interest U nknown (test code = 02586-5) Whether the patient was hospitalized for condition of interest Unkn own (test code = 80676-5) Whether the patient was admitted to intensive care unit (ICU) for U nknown condition of interest (test code = 54680-2) Whether patient resides in a congregate care setting (test code = U nknown 26593-7) status (test code = 03101-3) Unknown Date and time of symptom onset (test code = 25816-6) Unknown SARS-CoV-2 (COVID-19) RNA [Presence] in Respiratory specimen by FREDDY with probe [id number] 00:14:57 Test Item Value Reference Range Interpretation Comments SARS-CoV-2 (COVID-19) RNA Not detected [Presence] in Respiratory specimen by FREDDY with probe detection (test code = 38329-3) Whether patient is employed in a Unknown healthcare setting (test code = 71617-9) Whether the patient has symptoms Unknown related to condition of interest (test code = 23320-7) Whether the patient was Unknown hospitalized for condition of interest (test code = 43959-9) Whether the patient was admitted Unknown to intensive care unit (ICU) for condition of interest (test code = 92959-6) Whether patient resides in a Unknown congregate care setting (test code = 64369-7) status (test code = Unknown 22835-9) Date and time of symptom onset Unknown (test code = 82850-6) BASIC METABOLIC [id number] 10:10:00 Test Item Value Reference Range Interpretation Comments SODIUM (test code = NA) 137 mEq/L 134-147 N POTASSIUM (test code = 3.9 mEq/L 3.4-5.0 N K) CHLORIDE (test code = 107 mEq/L 100-108 N CL) CARBON DIOXIDE (test 21 mEq/l 21-33 N code = CO2) ANION GAP (test code = 13 0-20 N GAP) GLUCOSE (test code = 82 mg/dL 70-110 N GLU) BLOOD UREA NITROGEN < 5 mg/dL 7-18 L (test code = BUN) GLOMERULAR FILTRATION 122.8 110-120 H Units of measure = RATE (test code = GFR) ml/mi n/1.73 m2 CREATININE (test code = 0.6 mg/dL 0.6-1.3 N CREAT) CALCIUM (test code = 8.9 mg/dL 8.0-10.5 N CA) HCG [id number] 10:10:00 Test Item Value Reference Range Interpretation Comments HCG SERUM (test 34892.5 0 - 6 code = HCG) NOT > 6 S UGGESTIVE OF EARLY RISES TWO FOLD EVERY 2 DA YS; SUGGEST RECONFIRMING AF TER 2 DAYS. 150,000- 200,[address] TRIMESTER 10,000 - 50,000 2N D & 3RD TRIMESTERResult s in frank-Internati onal Units/mL UA RFLX MICR CULT IF [id number] 10:05:00 Test Item Value Reference Range Interpretation [...] Description: CLEAN CATCH DRUGS OF ABUSE SCREEN [id number] 09:52:00 Test Item Value Reference Range Interpretation [...] ed for non-medical pur poses. CBC W/AUTO [id number] 09:43:00 Test Item Value Reference Range Interpretation [...] NO = MDIFF) - US PREG 1ST [id number] 00:00:00 [facility] 1995 Sex: F Name: MAIA MEJIA [facility] : 1995 Age/S: 26 / F [address] [place], [place] [address]vd Unit #: [id number] Loc: [place] [address] Phys: Darby Tapia [facility] Acct: [id number] Dis Date: Status: REG ER PHONE #: [phone] Exam Date: 09/08/2021 0957 FAX #: [phone] Reason: Pelvic Pain EXAMS: CPT CODE: [id number] US PREG 1ST TRIMTR [address] [place] OCEDURE INFORMATION: Exam: US First Trimester, Transabdominal [...] 1 Signed Report (CONTINUED) Name: MAIA MEJIA [facility] : 1995 Age/S: 26 / F [address] [place] [address] Unit #: [id number] Loc: [place] [address] Phys: Darby Tapia Acct: [id number] Dis Date: Status: REG ER PHONE #: [phone] Exam Date: 09/08/2021 0957 FAX #: [phone] Reason: Pelvic Pain EXAMS: CPT CODE: [id number] PREG 1ST TRIMTR 06573 <Continued> CC: Cisco Doyle MD; Darby Tapia Technologist: Andra Astorga Trnscb Date/Time:09/08/2021 (101) [id number].[email or web address] Orig Print D/T: S: 09/08/2021 (1013) Probe: PAGE 2 Signed Report- DUP AB/PEL/SC/[id number] 00:00:00 [facility] ETHEL HESSName: MAIA MEJIA : 1995 Sex: F Name: MAIA MEJIA [facility] Ethel [place] : 1995 Age/S: 26 / F [address] [place] [address] Blvd Unit #: [id number] Loc: [place] [address] Phys: Darby Tapia Acct: [id number] Dis Date: Status: REG ER PHONE #: [phone] Exam Date: 09/08/2021 0957 FAX #: [phone] Reason: see US PREG 1st TRIMTR EXAMS: CPT CODE: [id number] DUP AB/PEL/SC/LTD 90437 [place] OCEDURE INFORMATION: Exam: US First Trimester, Transabdominal [...] 1 Signed Report (CONTINUED) Name: MAIA MEJIA [facility] : 1995 Age/S: 26 / F [address] [place] [address] Blvd Unit #: [id number] Loc: [place] [address] Phys: Darby Tapia Acct: [id number] Dis Date: Status: REG ER PHONE #: [phone] Exam Date: 09/08/2021 0957 FAX #: [phone] Reason: see US PREG 1st TRIMTR EXAMS: CPT CODE: [id number] DUP AB/PEL/SC/LTD 66070 <Continued> CC: Cisco Doyle MD; Darby Tapia Technologist: Andra Astorga Trnscb Date/Time:09/08/2021 (1013) [email or web address] Orig Print D/T: S: 09/08/2021 (1014) Probe: PAGE 2 Signed ReportABORH Confirmation (Lab Only)2021-07-25 08:58:17 Test Item Value Reference Range Interpretation Comments ABO & RH (test code B Positive Performe d at [facility] = 20) Laboratory [facility] [address] [place] [phone] Free: [phone] A No. [id number] [facility] [place] [facility] - ONCE [id number] 08:44:15 Test Item Value Reference Range Interpretation Comments ABO & RH (test code B Positive Performe d at [facility] = 20) Laboratory [facility] [address] [place], [place] [phone] Free: [phone] A No. [id number] IAT (test code = Negative Performed a t [facility] 1185) Laboratory [facility] [address] [place] [address]Htli Free: [phone] A No. [id number] [facility] [place] BHCG (QUANTITATIVE)2021-07-25 08:38:23 Test Item Value Reference Range Interpretation Comments BETA HCG (test See_Comment [Automated m essage] code = The system [employer] h [id number]) generated this result transmit grecia reference range : Non- fe male and male patien ts: <5 mIU/mL. The reference range was not used to interpret this result as normal/abnormal . DEIDRA (test code Gestational Age ? ? = DEIDRA) ?Range (mIU/mL) 1-10 ?Weeks ?[id number] Weeks ?98003-92270797-57 Weeks ?2091-40877476-19 Weeks ?5021-997710 Biotin has been reported to cause a negative bias, interpret results relative to patient's use of biotin. [facility]. METABOLIC PANEL (09987)2021-07-25 07:44:50 Test Item Value Reference Range Interpretation Comments NA (test code = 136 mmol/L 135-145 0631180846) K (test code = 3.9 mmol/L 3.5-5.0 3307656822) CL (test code = 104 mmol/L 98-108 3983052814) CO2 TOTAL (test code = 24 mmol/L 23-31 2784290278) AGAP (test code = 2-16 3434768313) BUN (test code = 7 mg/dL 7-23 1677279050) GLUCOSE (test code = 115 mg/dL 70-110 H 5368440308) CREATININE (test code = 0.58 mg/dL 0.50-1.04 6239381952) TOTAL BILI (test code = 0.3 mg/dL 0.1-1.0 1775492031) CALCIUM (test code = 9.6 mg/dL 8.6-10.6 5070085183) T PROTEIN (test code = 6.9 g/dL 6.3-8.2 1371089188) ALBUMIN (test code = 4.1 g/dL 3.5-5.0 4689525483) ALK PHOS (test code = 75 U/L 34-122 8552049369) ALTv (test code = 13 U/L 5-35 1742-6) AST(SGOT) (test code = 19 U/L 13-40 8500456536) eGFR (test code = mL/min/1.73m2 1336342101) DEIDRA (test code = DEIDRA) Association of [...] tests). Lab Interpretation Abnormal (test code = 63335-2) [facility] WITH [id number] 07:31:47 Test Item Value Reference Range Interpretation [...] RDW-SD (test code = 41.1 fL 39.0-49.9 52583-8) RDW-CV (test code = 12.8 % 12.0-15.5 788-0) PLT (test code = See_Comment [Automated 777-3) message] The sy stem which generated this result transmitted reference range : 166 - 358 10*3/ ?L. The reference r nurys was not used to interpret this result as normal/abnormal . MPV (test code = 11.2 fL 9.5-12.9 08544-1) NRBC/100 WBC (test See_Comment [Automat ed code = 7304466868) message] The system which generated this result transmitted reference range : 0.0 - 10.0 /100 WBCs. The refer ence range was not u sed to interpret th is result as normal/abnormal . NRBC x10^3 (test code <0.01 See_Comment [Auto mated = 5374080577) message] The s ystem which generated this result transmitted reference range : 10*3/?L. The reference range was not used to interpret this result as normal/abnormal . GRAN MAT (NEUT) % 76.4 % (test code = 770-8) IMM GRAN % (test code 0.40 % = 1165325188) LYMPH % (test code = 13.3 % 736-9) MONO % (test code = 7.9 % 5905-5) EOS % (test code = 1.4 % 713-8) BASO % (test code = 0.6 % 706-2) GRAN MAT x10^3(ANC) 7.57 10*3/uL 1.88-7.09 H (test code = 0303940686) IMM GRAN x10^3 (test 0.04 10*3/uL 0.00-0.06 code = 4546531630) LYMPH x10^3 (test code 1.32 10*3/uL 1.32-3.29 = 731-0) MONO x10^3 (test code 0.78 10*3/uL 0.33-0.92 = 742-7) EOS x10^3 (test code = 0.14 10*3/uL 0.03-0.39 711-2) BASO x10^3 (test code 0.06 10*3/uL 0.01-0.07 = 704-7) Lab Interpretation Abnormal (test code = 47484-2) [facility]"
[2022-01-13] MEDS ORDERED: METOCLOPRAMIDE 10 MG/2mL INJ ONE (10:38)
--- NOTE | 2022-01-13 11:24 | RAD REPORT ---
EXAM DESCRIPTION: RAD - Chest Single View - 01/13/2022 11:14 am CLINICAL HISTORY: CHEST PAIN COMPARISON: No comparisons FINDINGS: Lines: None. Lungs: No evidence of edema or pneumonia. Pleural: No significant pleural effusions or pneumothorax. Cardiac: The heart size is within normal limits. Bones: No acute fractures. Other: IMPRESSION: No acute cardiopulmonary disease.
[2022-01-13 11:31] LABS: Absolute Lymphocytes (CBC) 0.9 K/uL (0.7-4.9); Hematocrit 30.3 % (36.0-45.0); Lymphocytes % 9.7 % (15.3-44.8); RBC Red Blood Cell Count 3.59 M/uL (3.86-4.86)
[2022-01-13 11:49] LABS: ALT/SGPT 16 U/L (12-78); AST/SGOT 10 U/L (15-37); Albumin 2.5 g/dL (3.4-5.0); Alkaline Phosphatase 138 U/L (45-117); BUN Blood Urea Nitrogen 7 mg/dL (7-18); Bicarbonate 20 mmol/L (21-32); Bilirubin Total 0.2 mg/dL (0.2-1.0); Glucose Level 88 mg/dL (74-106); Magnesium 1.7 mg/dL (1.8-2.4); Potassium 3.9 mmol/L (3.5-5.1); Protein, Total 6.8 g/dL (6.4-8.2); Sodium Level 137 mmol/L (136-145)
[2022-01-13 12:25] LABS: Bilirubin Direct < 0.1 mg/dL (0-0.2); Troponin High Sensitivity < 3.0 pg/mL (<58.9)
[2022-01-13] MEDS ORDERED: ACETAMINOPHEN 500 MG TAB ONE (12:42)
--- NOTE | 2022-01-13 13:41 | RAD REPORT ---
EXAM DESCRIPTION: CT - Chest For Pe Angio - 01/13/2022 1:26 pm CLINICAL HISTORY: Chest pain COMPARISON: None. TECHNIQUE: Dynamically enhanced axial 3 mm thick images of the chest were obtained during administra tion of <100> mL Isovue 370 IV contrast. Coronal and oblique reconstruction images were generated and reviewed. Exam utilizes a protocol for optimal evaluation of pulmonary arterial tree. Maximum intensity projections 3D imaging was utilized All CT scans are performed using dose optimization technique as appropriate and may include automated exposure control or mA/KV adjustment according to patient size. FINDINGS: The opacification of the pulmonary arteries is suboptimal. No gross central pulmonary embo kanu seen A thoracic aortic aneurysm is not noted. A pleural effusion is not seen. A pericardial effusion is not seen. A lung consolidation is not present. IMPRESSION: No gross central pulmonary embolus seen
--- NOTE | 2022-01-13 14:07 | ER ---
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 Coronavirus screen: At this time, the client does not indicate any symptoms associated with coronavirus-19. Ebola Screen: Patient negative for fever greater than or equal to 101.5 degrees Fahrenheit, and additional compatible Ebola Virus Disease symptoms Patient denies exposure to infectious person. Patient denies travel to an Ebola-affected area in the 21 days before illness onset. No symptoms or risks identified at this time. Initial Sepsis Screen: Does the patient meet any 2 criteria? No. Patient's initial sepsis screen is negative. Does the patient have a suspected source of infection? No. Patient's initial sepsis screen is negative. Risk Assessment: Do you want to hurt yourself or someone else? Patient reports no desire to harm self or others. Onset of symptoms was January 13, 2022. 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 - Social history:: Smoking status: Patient denies any tobacco usage or history of. Screenin:55 Abuse screen: Denies threats or abuse. Denies injuries from another. Nutritional ph screening: No deficits noted. Tuberculosis screening: No symptoms or risk factors identified. Fall Risk None identified. Assessment: 11:00 General: Appears in no apparent distress. uncomfortable, Behavior is calm, cooperative, ph appropriate for age. Pain: Pain: Complains of pain in chest Pain does not radiate. Pain began gradually. 11:00 Neuro: Level of Consciousness is awake, alert, obeys commands, Oriented to person, ph place, time, situation, Reports headache. Cardiovascular: Reports chest pain, nausea, shortness of breath, Capillary refill < 3 seconds in bilateral fingers Patient's skin is warm and dry. Respiratory: Reports shortness of breath at rest Airway is patent Respiratory effort is even, unlabored, Breath sounds are clear bilaterally. GI: Reports nausea, Patient currently denies abdominal pain, vomiting. Derm: Skin is intact, Skin is pink, warm \T\ dry. Musculoskeletal: Circulation, motion, and sensation intact. Range of motion: intact in all extremities. 12:00 Reassessment: Patient appears in no apparent distress at this time. Patient and/or ph family updated on plan of care and expected duration. Pain level reassessed. Patient is alert, oriented x 3, equal unlabored respirations, skin warm/dry/pink. 13:00 Reassessment: Patient appears in no apparent distress at this time. Patient and/or ph family updated on plan of care and expected duration. Pain level reassessed. Patient is alert, oriented x 3, equal unlabored respirations, skin warm/dry/pink. Vital Signs: 10:10 BP 127 / 78; Pulse 101; Resp 16; Temp 98.6; Pulse Ox 98% on R/A; iw 11:00 BP 128 / 76; Pulse 99; Resp 18; Pulse Ox 98% on R/A; ph 12:00 BP 136 / 72; Pulse 98; Resp 18; Pulse Ox 99% on R/A; ph 14:30 BP 120 / 82; Pulse 96; Resp 18; Temp 97.5; Pulse Ox 99% on R/A; ph ED Course: 09:47 Patient arrived in ED. mr 10:00 Reagan Burns DO is Attending Physician. ms3 10:12 Triage completed. iw 10:12 Arm band placed on. iw 10:54 Allison Cardenas, RADHA is Primary Nurse. ph 10:55 Inserted saline lock: 20 gauge in left forearm, using aseptic technique. mb7 10:56 Patient has correct armband on for positive identification. Placed in gown. Bed in low ph position. Call light in reach. Side rails up X 1. Client placed on continuous cardiac and pulse oximetry monitoring. NIBP monitoring applied. 10:56 Patient maintains SpO2 saturation greater than 95% on room air. ph 11:04 D-Dimer Sent. mb7 11:16 XRAY Chest (1 view) In Process Unspecified. EDMS 13:28 CT Chest For PE Angio In Process Unspecified. EDMS 15:14 No provider procedures requiring assistance completed. IV discontinued, intact, ph bleeding controlled, No redness/swelling at site. Pressure dressing applied. Administered Medications: 12:40 Drug: Tylenol 1000 mg Route: PO; ph 13:00 Follow up: Response: No adverse reaction ph Medication: 10:56 VIS not applicable for this client. ph Outcome: 14:07 Discharge ordered by MD. ms3 15:14 Patient left the ED. iw 15:14 Discharged to home ambulatory, with family. ph 15:14 Condition: good 15:14 Discharge instructions given to patient, Instructed on discharge instructions, follow up and referral plans. Demonstrated understanding of instructions, follow-up care. Signatures: Dispatcher [employer] Frieda Simpson Irene, RN RN iw Allison Cardenas RN RN Reagan Burns DO DO ms3 Frieda Elena mb7 Corrections: (The following items were deleted from the chart) 19:44 11:00 Pain: ph ph
--- NOTE | 2022-01-13 14:08 | EDPHYS ---
Physician Documentation [facility] Name: Celia Thakkar Age: 26 yrs Sex: Female : 1995 Arrival Date: 01/13/2022 Time: 09:47 Bed 13 Private MD: ED Physician Reagan Burns HPI: 01/13 12:20 This 26 yrs old Female presents to ER via Ambulatory with complaints of 33 wks ms3 , Chest Pain. 12:46 The patient or guardian reports chest pain that is located primarily in the substernal ms3 area. The pain does not radiate. Associated signs and symptoms: Pertinent positives: nausea, shortness of breath, Pertinent negatives: vomiting. The chest pain is described as sharp. Modifying factors: The symptoms are alleviated by nothing. the symptoms are aggravated by breathing. Severity of pain: At its worst the pain was moderate a 7 / 10 in the emergency department the pain is unchanged. 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 - Social history:: Smoking status: Patient denies any tobacco usage or history of. ROS: 12:46 Constitutional: Negative for fever, and chills. Eyes: Negative for injury, pain, ms3 redness, and discharge, ENT: Negative for injury, pain, and discharge, Neck: Negative for injury, pain, and swelling, Respiratory: Negative for shortness of breath, cough, wheezing, and pleuritic chest pain, Abdomen/GI: Negative for abdominal pain, nausea, vomiting, diarrhea, and constipation, MS/Extremity: Negative for injury and deformity, Skin: Negative for injury, rash, and discoloration, Psych: Negative for depression, anxiety, suicide ideation, homicidal ideation, and hallucinations. 12:46 Cardiovascular: Positive for chest pain. Exam: 10:25 ECG was reviewed by the Attending Physician. ms3 12:46 Constitutional: This is a well developed, well nourished patient who is awake, alert, ms3 and in no acute distress. Head/Face: Normocephalic, atraumatic. Eyes: Pupils equal round and reactive to light, extra-ocular motions intact. Lids and lashes normal. Conjunctiva and sclera are non-icteric and not injected. Periorbital areas with no swelling, redness, or edema. Neck: Trachea midline, no cervical lymphadenopathy. Supple, full range of motion without nuchal rigidity, or vertebral point tenderness. No Meningismus. Chest/axilla: Normal chest wall appearance and motion. Nontender with no deformity. Respiratory: Lungs have equal breath sounds bilaterally, clear to auscultation and percussion. No rales, rhonchi or wheezes noted. No increased work of breathing, no retractions or nasal flaring. Abdomen/GI: Soft, non-tender, with normal bowel sounds. No distension or tympany. No guarding or rebound. No evidence of tenderness throughout. MS/ Extremity: Pulses equal, no cyanosis. Neurovascular intact. Full, normal range of motion. Psych: Awake, alert, with orientation to person, place and time. Behavior, mood, and affect are within normal limits. 12:46 Cardiovascular: Rate: tachycardic, Rhythm: regular, Pulses: no pulse deficits are appreciated, Heart sounds: normal, Edema: is not appreciated. Vital Signs: 10:10 BP 127 / 78; Pulse 101; Resp 16; Temp 98.6; Pulse Ox 98% on R/A; iw 11:00 BP 128 / 76; Pulse 99; Resp 18; Pulse Ox 98% on R/A; ph 12:00 BP 136 / 72; Pulse 98; Resp 18; Pulse Ox 99% on R/A; ph 14:30 BP 120 / 82; Pulse 96; Resp 18; Temp 97.5; Pulse Ox 99% on R/A; ph MDM: 10:29 Patient medically screened. ms3 14:08 Differential diagnosis: abnormal EKG, acute myocardial infarction, acute pericarditis, ms3 coronary artery disease chest wall pain, gastroesophageal reflux disease (GERD), SCAD. Data reviewed: vital signs, nurses notes, lab test result(s), EKG, radiologic studies. Data interpreted: hospital monitor: rate is 85 beats/min, rhythm is normal sinus rhythm, with no ectopy, Interpretation: normal rate, normal rhythm. Counseling: I had a detailed discussion with the patient and/or guardian regarding: the historical points, exam findings, and any diagnostic results supporting the discharge/admit diagnosis, lab results, radiology results, the need for outpatient follow up, to return to the emergency department if symptoms worsen or persist or if there are any questions or concerns that arise at home. ED course: Discussed labs, chest x-ray, CT, physical exam findings with patient. Patient to follow-up with OB physician in 1 to 2 days. Patient understands and agrees with plan. All questions were answered. Return precautions discussed include worsening symptoms, or any other concerns. On reevaluation patient is alert and oriented x4, in no apparent distress, nontoxic-appearing, speaking full sentences, ambulatory in emergency department.. 01/13 10:05 Order name: Basic Metabolic Panel; Complete Time: 12:44 ms3 01/13 10:05 Order name: CBC with Diff; Complete Time: 12:44 ms3 01/13 10:05 Order name: LFT's; Complete Time: 12:44 ms3 01/13 10:05 Order name: Magnesium; Complete Time: 12:44 ms3 01/13 10:05 Order name: Troponin HS; Complete Time: 12:44 ms3 01/13 10:54 Order name: D-Dimer; Complete Time: 12:44 ms3 01/13 10:05 Order name: XRAY Chest (1 view); Complete Time: 12:44 ms3 01/13 10:05 Order name: EKG; Complete Time: 10:06 ms3 01/13 10:05 Order name: Cardiac monitoring; Complete Time: 10:55 ms3 01/13 10:05 Order name: EKG - Nurse/Tech; Complete Time: 10:26 ms3 01/13 10:05 Order name: IV Saline Lock; Complete Time: 10:55 ms3 01/13 10:05 Order name: Labs collected and sent; Complete Time: 11:04 ms3 01/13 11:25 Order name: CT Chest For PE Angio; Complete Time: 13:52 ms3 01/13 10:05 Order name: O2 Per Protocol; Complete Time: 10:57 ms3 01/13 10:05 Order name: O2 Sat Monitoring; Complete Time: 10:57 ms3 EC:25 Rate is 100 beats/min. Rhythm is regular. QRS [place] is Normal. CO interval is normal. ms3 QRS interval is normal. Clinical impression: Sinus tachycardia. Interpreted by me. Administered Medications: 12:40 Drug: Tylenol 1000 mg Route: PO; ph 13:00 Follow up: Response: No adverse reaction ph Disposition Summary: 01/13/22 14:07 Discharge Ordered Location: Home ms3 Condition: Stable ms3 Diagnosis - Chest pain on breathing ms3 - 33 weeks gestation of ms3 Followup: ms3 - With: Private Physician - When: 2 - 3 days - Reason: Recheck today's complaints Discharge Instructions: - Discharge Summary Sheet ms3 - Nonspecific Chest Pain, Adult ms3 - Heartburn During , [id number] ms3 Forms: - Medication Reconciliation Form ms3 - Thank You Letter ms3 - Work release form ph - Antibiotic Education ms3 - Prescription Opioid Use ms3 Signatures: Dispatcher [employer] Virginia Mason RN RN iw Hall, Patricia, RN RN Reagan Baca DO DO ms3
[2022-01-13 16:41] VITALS: BP 127/78; TEMP 98.6; O2SAT 98
--- NOTE | 2022-01-15 14:54 | EKG ---
Test Date: 2022-01-13 Test Time: 10:25:09 Visual Merchandising Assistant: LOU MEASUREMENT RESULTS: Intervals: Rate: 100 WI: 116 QRSD: 76 QT: 342 QTc: 441 [place]: P: 64 WI: 116 QRS: 67 T: 37 INTERPRETIVE STATEMENTS: Normal sinus rhythm Normal ECG No previous ECG available for comparison Electronically Signed On 01-15-22 14:53:25 CDT by Felipe Burrell
== END 2022-01-13 15:14 | disposition home or self-care (01) ==
LOC: ER 09:44
DX: O26.893 Other specified pregnancy related conditions, third trimester (principal); Z3A.33 33 weeks gestation of pregnancy
CPT/HCPCS: 93005; 85025; 80048; 36415; 83735; 85379; 80076; 84484; 71275; 71045; 99284; Q9967; J2765